=== PATIENT | female | born 1955 | race African-American/Black ===

== ENCOUNTER 2021-01-03 12:33 | Inpatient (IN) | payer OTHER ==
[2021-01-03 15:19] VITALS: BMI 41.8
[2021-01-03] MEDS ORDERED: MAG HYDROX/AL HYDROX/SIMETH 30 ML UNIT-DOSE CUP PO PRN (18:52)
[2021-01-03] MEDS ORDERED: LOPERAMIDE HCL 2 MG CAPSULE PO PRN (18:52)
[2021-01-03] MEDS ORDERED: guaiFENesin 200 MG/10 ML 10 ML UNIT-DOSE CUPS PO PRN (18:52)
[2021-01-03] MEDS ORDERED: MAGNESIUM HYDROX 2400MG/30ML ORAL SUSPENSION 30 ML CUP PO PRN (18:52)
[2021-01-03] MEDS ORDERED: P-EPHED 60MG/TRIPROLIDI 2.5MG TABLET PO PRN (18:52)
[2021-01-03] MEDS ORDERED: MAGNESIUM CITRATE 300 ML BOTTLE PO PRN (18:52)
[2021-01-03] MEDS ORDERED: IBUPROFEN 400 MG TABLET (FP) PO PRN (18:52)
[2021-01-03] MEDS ORDERED: ACETAMINOPHEN 325 MG TABLET (FP) PO PRN (18:52)
[2021-01-03] MEDS ORDERED: CYCLOBENZAPRINE HCL 5 MG TABLET PO PRN (19:23)
[2021-01-03] MEDS ORDERED: TUBERCULIN PPD 5 TU/0.1ML VIAL ID ONE (20:27)
[2021-01-03] MEDS: THIAMINE HCL 100 MG TABLET (FP) PO SCH (21:39)
[2021-01-03] MEDS: ATORVASTATIN CA 20 MG TABLET (FP) PO SCH (21:39)
[2021-01-03] MEDS ORDERED: MELATONIN 5 MG TABLETS PO SCH (22:00)
[2021-01-03] MEDS ORDERED: CYCLOBENZAPRINE HCL 5 MG TABLET PO SCH (22:00)
[2021-01-04 09:50] LABS: HEMATOCRIT 41.6 % (32.4-45.2); HEMOGLOBIN 13.6 GM/dL (10.7-15.3); MCH 31.7 pg (25.7-33.7); MCHC 32.7 g/dl (32.0-36.0); MEAN PLT VOLUME 7.8 fl (7.5-11.1); PLATELET COUNT 253 K/MM3 (134-434); RBC 4.28 M/mm3 (3.60-5.2); RDW 15.4 % (11.6-15.6); WHITE BLOOD COUNT 5.5 K/mm3 (4.0-10.0)
[2021-01-04 10:00] LABS: CALCIUM 9.1 mg/dL (8.5-10.1)
[2021-01-04] MEDS ORDERED: LOSARTAN 50MG/HCTZ 12.5MG 1 TAB PO SCH (10:00)
[2021-01-04 10:01] LABS: ALBUMIN 3.3 g/dl (3.4-5.0); BLOOD UREA NITROGEN 7.7 mg/dL (7-18)
[2021-01-04 10:04] LABS: CREATININE 0.9 mg/dL (0.55-1.3)
[2021-01-04 10:05] LABS: BILIRUBIN,TOTAL 0.8 mg/dL (0.2-1)
[2021-01-04] MEDS: LOSARTAN POTASSIUM 50 MG TABLET PO SCH (10:27)
[2021-01-04] MEDS: HYDROCHLOROTHIAZIDE 12.5 MG CAPSULE (FP) PO SCH (10:27)
[2021-01-04] MEDS: PRENATAL VITAMINS W/ FOLIC ACID TABLET (FP) PO SCH (10:27)
[2021-01-04] MEDS: NICOTINE 7 MG/24 HOURS TOPICAL PATCH TD SCH (10:28)
[2021-01-04] MEDS: hydrOXYzine PAMOATE 25 MG CAPSULE (FP) PO PRN ×2 (10:28→21:25)
[2021-01-04] MEDS: TIOTROPIUM BROMIDE 2.5 MCG (SPIRIVA) RESPIMAT INHALER IH SCH (11:54)
[2021-01-04 14:51] LABS: URINE APPEARANCE CLEAR; URINE BILIRUBIN NEGATIVE (NEGATIVE); URINE COLOR YELLOW; URINE GLUCOSE (UA) NEGATIVE (NEGATIVE); URINE KETONE NEGATIVE (NEGATIVE); URINE LEUK ESTERASE NEGATIVE (NEGATIVE); URINE NITRITE NEGATIVE (NEGATIVE); URINE PROTEIN NEGATIVE (NEGATIVE)
[2021-01-04] MEDS: ATORVASTATIN CA 20 MG TABLET (FP) PO SCH (21:25)
[2021-01-04] MEDS: THIAMINE HCL 100 MG TABLET (FP) PO SCH (21:25)
[2021-01-04] MEDS: TOPIRAMATE 100 MG TABLET PO SCH (22:08)
[2021-01-04] MEDS: risperiDONE 1 MG TABLET PO SCH (22:08)
[2021-01-05] MEDS: HYDROCHLOROTHIAZIDE 12.5 MG CAPSULE (FP) PO SCH (10:18)
[2021-01-05] MEDS: LOSARTAN POTASSIUM 50 MG TABLET PO SCH (10:18)
[2021-01-05] MEDS: PRENATAL VITAMINS W/ FOLIC ACID TABLET (FP) PO SCH (10:18)
[2021-01-05] MEDS: NICOTINE 7 MG/24 HOURS TOPICAL PATCH TD SCH (10:19)
[2021-01-05] MEDS: TIOTROPIUM BROMIDE 2.5 MCG (SPIRIVA) RESPIMAT INHALER IH SCH (10:20)
[2021-01-05] MEDS: TOPIRAMATE 25 MG TABLET PO SCH (11:37)
[2021-01-05] MEDS ORDERED: PT OWN MED DRAWER 7, Y5N ONE (20:07)
[2021-01-05] MEDS: ATORVASTATIN CA 20 MG TABLET (FP) PO SCH (21:46)
[2021-01-05] MEDS: THIAMINE HCL 100 MG TABLET (FP) PO SCH (21:46)
[2021-01-05] MEDS: risperiDONE 1 MG TABLET PO SCH (21:46)
[2021-01-05] MEDS: TOPIRAMATE 100 MG TABLET PO SCH (21:46)
[2021-01-06] MEDS: PRENATAL VITAMINS W/ FOLIC ACID TABLET (FP) PO SCH (10:38)
[2021-01-06] MEDS: LOSARTAN POTASSIUM 50 MG TABLET PO SCH (10:38)
[2021-01-06] MEDS: HYDROCHLOROTHIAZIDE 12.5 MG CAPSULE (FP) PO SCH (10:38)
[2021-01-06] MEDS: NICOTINE 7 MG/24 HOURS TOPICAL PATCH TD SCH (10:38)
[2021-01-06] MEDS: TOPIRAMATE 25 MG TABLET PO SCH (10:39)
[2021-01-06] MEDS: TIOTROPIUM BROMIDE 2.5 MCG (SPIRIVA) RESPIMAT INHALER IH SCH (10:40)
[2021-01-06] MEDS ORDERED: PT OWN MED DRAWER 7, Y5N ONE (19:31)
[2021-01-06] MEDS: MELATONIN 5 MG TABLETS PO PRN (21:38)
[2021-01-06] MEDS: THIAMINE HCL 100 MG TABLET (FP) PO SCH (21:38)
[2021-01-06] MEDS: ATORVASTATIN CA 20 MG TABLET (FP) PO SCH (21:38)
[2021-01-06] MEDS: TOPIRAMATE 100 MG TABLET PO SCH (21:38)
[2021-01-06] MEDS: risperiDONE 1 MG TABLET PO SCH (21:38)
[2021-01-07 06:07] LABS: SARS-CoV-2 NAA Not Detected (Not Detected)
[2021-01-07] MEDS: NICOTINE 7 MG/24 HOURS TOPICAL PATCH TD SCH (10:06)
[2021-01-07] MEDS: LOSARTAN POTASSIUM 50 MG TABLET PO SCH (10:06)
[2021-01-07] MEDS: HYDROCHLOROTHIAZIDE 12.5 MG CAPSULE (FP) PO SCH (10:06)
[2021-01-07] MEDS: PRENATAL VITAMINS W/ FOLIC ACID TABLET (FP) PO SCH (10:06)
[2021-01-07] MEDS: TOPIRAMATE 25 MG TABLET PO SCH (10:07)
[2021-01-07] MEDS: TIOTROPIUM BROMIDE 2.5 MCG (SPIRIVA) RESPIMAT INHALER IH SCH (10:07)
[2021-01-07] MEDS ORDERED: PT OWN MED DRAWER 7, Y5N ONE (20:26)
[2021-01-07] MEDS: THIAMINE HCL 100 MG TABLET (FP) PO SCH (21:24)
[2021-01-07] MEDS: risperiDONE 1 MG TABLET PO SCH (21:24)
[2021-01-07] MEDS: TOPIRAMATE 100 MG TABLET PO SCH (21:24)
[2021-01-07] MEDS: MELATONIN 5 MG TABLETS PO PRN (21:24)
[2021-01-07] MEDS: ATORVASTATIN CA 20 MG TABLET (FP) PO SCH (21:24)
[2021-01-08] MEDS ORDERED: MASKS NR ONE (08:39)
[2021-01-08] MEDS: PRENATAL VITAMINS W/ FOLIC ACID TABLET (FP) PO SCH (09:23)
[2021-01-08] MEDS: NICOTINE 7 MG/24 HOURS TOPICAL PATCH TD SCH (09:25)
[2021-01-08] MEDS: HYDROCHLOROTHIAZIDE 12.5 MG CAPSULE (FP) PO SCH (09:25)
[2021-01-08] MEDS: LOSARTAN POTASSIUM 50 MG TABLET PO SCH (09:25)
[2021-01-08] MEDS: TIOTROPIUM BROMIDE 2.5 MCG (SPIRIVA) RESPIMAT INHALER IH SCH (09:26)
[2021-01-08] MEDS: TOPIRAMATE 25 MG TABLET PO SCH (09:26)
[2021-01-08] MEDS ORDERED: PT OWN MED DRAWER 7, Y5N ONE ×2 (19:30→21:44)
[2021-01-08] MEDS: ATORVASTATIN CA 20 MG TABLET (FP) PO SCH (21:42)
[2021-01-08] MEDS: THIAMINE HCL 100 MG TABLET (FP) PO SCH (21:42)
[2021-01-08] MEDS: MELATONIN 5 MG TABLETS PO PRN (21:42)
[2021-01-08] MEDS: risperiDONE 1 MG TABLET PO SCH (21:43)
[2021-01-08] MEDS: TOPIRAMATE 100 MG TABLET PO SCH (21:44)
[2021-01-09] MEDS: HYDROCHLOROTHIAZIDE 12.5 MG CAPSULE (FP) PO SCH (10:23)
[2021-01-09] MEDS: PRENATAL VITAMINS W/ FOLIC ACID TABLET (FP) PO SCH (10:23)
[2021-01-09] MEDS: LOSARTAN POTASSIUM 50 MG TABLET PO SCH (10:23)
[2021-01-09] MEDS: NICOTINE 7 MG/24 HOURS TOPICAL PATCH TD SCH (10:24)
[2021-01-09] MEDS: TIOTROPIUM BROMIDE 2.5 MCG (SPIRIVA) RESPIMAT INHALER IH SCH (10:24)
[2021-01-09] MEDS: TOPIRAMATE 25 MG TABLET PO SCH (10:24)
[2021-01-09] MEDS: risperiDONE 1 MG TABLET PO SCH (21:21)
[2021-01-09] MEDS: ATORVASTATIN CA 20 MG TABLET (FP) PO SCH (21:22)
[2021-01-09] MEDS: THIAMINE HCL 100 MG TABLET (FP) PO SCH (21:22)
[2021-01-09] MEDS: MELATONIN 5 MG TABLETS PO PRN (21:22)
[2021-01-09] MEDS: TOPIRAMATE 100 MG TABLET PO SCH (21:22)
[2021-01-09] MEDS: hydrOXYzine PAMOATE 25 MG CAPSULE (FP) PO PRN (21:23)
[2021-01-10] MEDS: PRENATAL VITAMINS W/ FOLIC ACID TABLET (FP) PO SCH (10:08)
[2021-01-10] MEDS: TOPIRAMATE 25 MG TABLET PO SCH (10:09)
[2021-01-10] MEDS: LOSARTAN POTASSIUM 50 MG TABLET PO SCH (10:09)
[2021-01-10] MEDS: HYDROCHLOROTHIAZIDE 12.5 MG CAPSULE (FP) PO SCH (10:09)
[2021-01-10] MEDS: TIOTROPIUM BROMIDE 2.5 MCG (SPIRIVA) RESPIMAT INHALER IH SCH (10:10)
[2021-01-10] MEDS: NICOTINE 7 MG/24 HOURS TOPICAL PATCH TD SCH (10:11)
[2021-01-10] MEDS: TOPIRAMATE 100 MG TABLET PO SCH (21:42)
[2021-01-10] MEDS: ATORVASTATIN CA 20 MG TABLET (FP) PO SCH (21:42)
[2021-01-10] MEDS: MELATONIN 5 MG TABLETS PO PRN (21:42)
[2021-01-10] MEDS: THIAMINE HCL 100 MG TABLET (FP) PO SCH (21:42)
[2021-01-10] MEDS: risperiDONE 1 MG TABLET PO SCH (21:42)
[2021-01-11] MEDS: HYDROCHLOROTHIAZIDE 12.5 MG CAPSULE (FP) PO SCH (10:13)
[2021-01-11] MEDS: NICOTINE 7 MG/24 HOURS TOPICAL PATCH TD SCH (10:13)
[2021-01-11] MEDS: PRENATAL VITAMINS W/ FOLIC ACID TABLET (FP) PO SCH (10:13)
[2021-01-11] MEDS: LOSARTAN POTASSIUM 50 MG TABLET PO SCH (10:14)
[2021-01-11] MEDS: TIOTROPIUM BROMIDE 2.5 MCG (SPIRIVA) RESPIMAT INHALER IH SCH (10:14)
[2021-01-11] MEDS: TOPIRAMATE 25 MG TABLET PO SCH (10:15)
[2021-01-11] MEDS ORDERED: PT OWN MED DRAWER 7, Y5N ONE (19:30)
[2021-01-11] MEDS: TOPIRAMATE 100 MG TABLET PO SCH (21:31)
[2021-01-11] MEDS: THIAMINE HCL 100 MG TABLET (FP) PO SCH (21:31)
[2021-01-11] MEDS: risperiDONE 1 MG TABLET PO SCH (21:31)
[2021-01-11] MEDS: ATORVASTATIN CA 20 MG TABLET (FP) PO SCH (21:31)
[2021-01-11] MEDS: MELATONIN 5 MG TABLETS PO PRN (21:32)
[2021-01-12] MEDS ORDERED: PT OWN MED DRAWER 7, Y5N ONE ×2 (08:57→20:48)
[2021-01-12] MEDS: LOSARTAN POTASSIUM 50 MG TABLET PO SCH (09:49)
[2021-01-12] MEDS: TOPIRAMATE 25 MG TABLET PO SCH (09:49)
[2021-01-12] MEDS: PRENATAL VITAMINS W/ FOLIC ACID TABLET (FP) PO SCH (09:49)
[2021-01-12] MEDS: TIOTROPIUM BROMIDE 2.5 MCG (SPIRIVA) RESPIMAT INHALER IH SCH (09:49)
[2021-01-12] MEDS: HYDROCHLOROTHIAZIDE 12.5 MG CAPSULE (FP) PO SCH (09:49)
[2021-01-12] MEDS ORDERED: COVID-19 VAC,AD26(JANSSEN)/PF 0.5 ML IM ONE (10:00)
[2021-01-12] MEDS: NICOTINE 7 MG/24 HOURS TOPICAL PATCH TD SCH (10:24)
[2021-01-12] MEDS: CHLORHEXIDINE GLUCONATE 118 ML MOUTHWASH MM SCH ×2 (12:45→21:28)
[2021-01-12] MEDS: THIAMINE HCL 100 MG TABLET (FP) PO SCH (21:28)
[2021-01-12] MEDS: TOPIRAMATE 100 MG TABLET PO SCH (21:28)
[2021-01-12] MEDS: ATORVASTATIN CA 20 MG TABLET (FP) PO SCH (21:28)
[2021-01-12] MEDS: risperiDONE 2 MG TABLET PO SCH (21:28)
[2021-01-12] MEDS: MELATONIN 5 MG TABLETS PO PRN (21:30)
[2021-01-13] MEDS ORDERED: PT OWN MED DRAWER 7, Y5N ONE ×4 (08:26→19:29)
[2021-01-13] MEDS: PRENATAL VITAMINS W/ FOLIC ACID TABLET (FP) PO SCH (09:25)
[2021-01-13] MEDS: HYDROCHLOROTHIAZIDE 12.5 MG CAPSULE (FP) PO SCH (09:26)
[2021-01-13] MEDS: TIOTROPIUM BROMIDE 2.5 MCG (SPIRIVA) RESPIMAT INHALER IH SCH (09:26)
[2021-01-13] MEDS: LOSARTAN POTASSIUM 50 MG TABLET PO SCH (09:26)
[2021-01-13] MEDS: NICOTINE 7 MG/24 HOURS TOPICAL PATCH TD SCH (09:26)
[2021-01-13] MEDS: CHLORHEXIDINE GLUCONATE 118 ML MOUTHWASH MM SCH ×2 (09:27→21:23)
[2021-01-13] MEDS: TOPIRAMATE 25 MG TABLET PO SCH (12:25)
[2021-01-13] MEDS: ATORVASTATIN CA 20 MG TABLET (FP) PO SCH (21:24)
[2021-01-13] MEDS: risperiDONE 2 MG TABLET PO SCH (21:24)
[2021-01-13] MEDS: MELATONIN 5 MG TABLETS PO PRN (21:24)
[2021-01-13] MEDS: THIAMINE HCL 100 MG TABLET (FP) PO SCH (21:24)
[2021-01-13] MEDS: TOPIRAMATE 100 MG TABLET PO SCH (21:24)
[2021-01-14] MEDS: PRENATAL VITAMINS W/ FOLIC ACID TABLET (FP) PO SCH (10:13)
[2021-01-14] MEDS: HYDROCHLOROTHIAZIDE 12.5 MG CAPSULE (FP) PO SCH (10:14)
[2021-01-14] MEDS: CHLORHEXIDINE GLUCONATE 118 ML MOUTHWASH MM SCH ×2 (10:15→21:33)
[2021-01-14] MEDS: TOPIRAMATE 25 MG TABLET PO SCH (10:16)
[2021-01-14] MEDS: TIOTROPIUM BROMIDE 2.5 MCG (SPIRIVA) RESPIMAT INHALER IH SCH (10:17)
[2021-01-14] MEDS: LOSARTAN POTASSIUM 50 MG TABLET PO SCH (10:17)
[2021-01-14] MEDS: NICOTINE 7 MG/24 HOURS TOPICAL PATCH TD SCH (10:19)
[2021-01-14] MEDS ORDERED: PT OWN MED DRAWER 7, Y5N ONE (19:34)
[2021-01-14] MEDS: hydrOXYzine PAMOATE 25 MG CAPSULE (FP) PO PRN (21:34)
[2021-01-14] MEDS: THIAMINE HCL 100 MG TABLET (FP) PO SCH (21:34)
[2021-01-14] MEDS: ATORVASTATIN CA 20 MG TABLET (FP) PO SCH (21:34)
[2021-01-14] MEDS: TOPIRAMATE 100 MG TABLET PO SCH (21:34)
[2021-01-14] MEDS: MELATONIN 5 MG TABLETS PO PRN (21:34)
[2021-01-14] MEDS: risperiDONE 2 MG TABLET PO SCH (21:35)
[2021-01-15] MEDS: NICOTINE 7 MG/24 HOURS TOPICAL PATCH TD SCH (09:56)
[2021-01-15] MEDS: LOSARTAN POTASSIUM 50 MG TABLET PO SCH (09:56)
[2021-01-15] MEDS: PRENATAL VITAMINS W/ FOLIC ACID TABLET (FP) PO SCH (09:56)
[2021-01-15] MEDS: HYDROCHLOROTHIAZIDE 12.5 MG CAPSULE (FP) PO SCH (09:56)
[2021-01-15] MEDS: TOPIRAMATE 25 MG TABLET PO SCH (10:01)
[2021-01-15] MEDS: TIOTROPIUM BROMIDE 2.5 MCG (SPIRIVA) RESPIMAT INHALER IH SCH (10:02)
[2021-01-15] MEDS: CHLORHEXIDINE GLUCONATE 118 ML MOUTHWASH MM SCH ×2 (10:02→21:30)
[2021-01-15] MEDS ORDERED: PT OWN MED DRAWER 7, Y5N ONE (19:27)
[2021-01-15] MEDS: THIAMINE HCL 100 MG TABLET (FP) PO SCH (21:30)
[2021-01-15] MEDS: TOPIRAMATE 100 MG TABLET PO SCH (21:30)
[2021-01-15] MEDS: ATORVASTATIN CA 20 MG TABLET (FP) PO SCH (21:30)
[2021-01-15] MEDS: risperiDONE 2 MG TABLET PO SCH (21:30)
[2021-01-15] MEDS: MELATONIN 5 MG TABLETS PO PRN (21:30)
[2021-01-16] MEDS ORDERED: PT OWN MED DRAWER 7, Y5N ONE ×2 (09:04→20:38)
[2021-01-16] MEDS: PRENATAL VITAMINS W/ FOLIC ACID TABLET (FP) PO SCH (10:06)
[2021-01-16] MEDS: TIOTROPIUM BROMIDE 2.5 MCG (SPIRIVA) RESPIMAT INHALER IH SCH (10:07)
[2021-01-16] MEDS: HYDROCHLOROTHIAZIDE 12.5 MG CAPSULE (FP) PO SCH (10:07)
[2021-01-16] MEDS: LOSARTAN POTASSIUM 50 MG TABLET PO SCH (10:07)
[2021-01-16] MEDS: TOPIRAMATE 25 MG TABLET PO SCH (10:08)
[2021-01-16] MEDS: CHLORHEXIDINE GLUCONATE 118 ML MOUTHWASH MM SCH ×2 (10:08→21:45)
[2021-01-16] MEDS: NICOTINE 7 MG/24 HOURS TOPICAL PATCH TD SCH (10:08)
[2021-01-16] MEDS: ATORVASTATIN CA 20 MG TABLET (FP) PO SCH (21:44)
[2021-01-16] MEDS: risperiDONE 2 MG TABLET PO SCH (21:44)
[2021-01-16] MEDS: TOPIRAMATE 100 MG TABLET PO SCH (21:44)
[2021-01-16] MEDS: THIAMINE HCL 100 MG TABLET (FP) PO SCH (21:44)
[2021-01-16] MEDS: MELATONIN 5 MG TABLETS PO PRN (21:45)
[2021-01-17] MEDS: NICOTINE 7 MG/24 HOURS TOPICAL PATCH TD SCH (10:24)
[2021-01-17] MEDS: TIOTROPIUM BROMIDE 2.5 MCG (SPIRIVA) RESPIMAT INHALER IH SCH (10:24)
[2021-01-17] MEDS: TOPIRAMATE 25 MG TABLET PO SCH (10:24)
[2021-01-17] MEDS: PRENATAL VITAMINS W/ FOLIC ACID TABLET (FP) PO SCH (10:24)
[2021-01-17] MEDS: HYDROCHLOROTHIAZIDE 12.5 MG CAPSULE (FP) PO SCH (10:25)
[2021-01-17] MEDS: LOSARTAN POTASSIUM 50 MG TABLET PO SCH (10:25)
[2021-01-17] MEDS: CHLORHEXIDINE GLUCONATE 118 ML MOUTHWASH MM SCH ×2 (10:26→21:26)
[2021-01-17] MEDS: TOPIRAMATE 100 MG TABLET PO SCH (21:24)
[2021-01-17] MEDS: MELATONIN 5 MG TABLETS PO PRN (21:25)
[2021-01-17] MEDS: THIAMINE HCL 100 MG TABLET (FP) PO SCH (21:25)
[2021-01-17] MEDS: ATORVASTATIN CA 20 MG TABLET (FP) PO SCH (21:25)
[2021-01-17] MEDS: risperiDONE 2 MG TABLET PO SCH (21:25)
[2021-01-17] MEDS: hydrOXYzine PAMOATE 25 MG CAPSULE (FP) PO PRN (21:25)
[2021-01-18] MEDS: TIOTROPIUM BROMIDE 2.5 MCG (SPIRIVA) RESPIMAT INHALER IH SCH (10:28)
[2021-01-18] MEDS: PRENATAL VITAMINS W/ FOLIC ACID TABLET (FP) PO SCH (10:28)
[2021-01-18] MEDS: CHLORHEXIDINE GLUCONATE 118 ML MOUTHWASH MM SCH ×2 (10:29→23:17)
[2021-01-18] MEDS: TOPIRAMATE 25 MG TABLET PO SCH (10:29)
[2021-01-18] MEDS: LOSARTAN POTASSIUM 50 MG TABLET PO SCH (10:29)
[2021-01-18] MEDS: HYDROCHLOROTHIAZIDE 12.5 MG CAPSULE (FP) PO SCH (10:29)
[2021-01-18] MEDS: NICOTINE 7 MG/24 HOURS TOPICAL PATCH TD SCH (10:29)
[2021-01-18] MEDS: risperiDONE 2 MG TABLET PO SCH (21:50)
[2021-01-18] MEDS: TOPIRAMATE 100 MG TABLET PO SCH (21:50)
[2021-01-18] MEDS: hydrOXYzine PAMOATE 25 MG CAPSULE (FP) PO PRN (21:50)
[2021-01-18] MEDS: ATORVASTATIN CA 20 MG TABLET (FP) PO SCH (21:50)
[2021-01-18] MEDS: THIAMINE HCL 100 MG TABLET (FP) PO SCH (21:50)
[2021-01-19 07:09] VITALS: TEMP 97.3
[2021-01-19] MEDS: LOSARTAN POTASSIUM 50 MG TABLET PO SCH (10:21)
[2021-01-19] MEDS: TOPIRAMATE 25 MG TABLET PO SCH (10:21)
[2021-01-19] MEDS: HYDROCHLOROTHIAZIDE 12.5 MG CAPSULE (FP) PO SCH (10:21)
[2021-01-19] MEDS: CHLORHEXIDINE GLUCONATE 118 ML MOUTHWASH MM SCH (10:22)
[2021-01-19] MEDS: PRENATAL VITAMINS W/ FOLIC ACID TABLET (FP) PO SCH (10:22)
[2021-01-19] MEDS: NICOTINE 7 MG/24 HOURS TOPICAL PATCH TD SCH (10:22)
[2021-01-19] MEDS: TIOTROPIUM BROMIDE 2.5 MCG (SPIRIVA) RESPIMAT INHALER IH SCH (10:22)
[2021-01-19 10:33] VITALS: BP 122/63; PULSE 85
== END 2021-01-19 10:45 | disposition home or self-care (01) | DRG 895 ==
LOC: YASAS 12:33 → Y5N 18:12
PROVIDERS: ADMIT Allergy & Immunology; ATTEND Allergy & Immunology
PROC: HZ42ZZZ Group Counseling for Substance Abuse Treatment, Cognitive-Behavioral (ICD-10-PCS; principal; 2021-01-03)
DX: F10.20 Alcohol dependence, uncomplicated (principal); F14.20 Cocaine dependence, uncomplicated; F12.20 Cannabis dependence, uncomplicated; F17.210 Nicotine dependence, cigarettes, uncomplicated; F31.9 Bipolar disorder, unspecified; F19.24 Other psychoactive substance dependence with psychoactive substance-induced mood disorder; I10 Essential (primary) hypertension; J44.9 Chronic obstructive pulmonary disease, unspecified; E78.5 Hyperlipidemia, unspecified; M17.11 Unilateral primary osteoarthritis, right knee; M16.11 Unilateral primary osteoarthritis, right hip; Z86.19 Personal history of other infectious and parasitic diseases
CPT/HCPCS: 36415; 80053; 81003; 85027; 86593; 86780; C9803; J2794; U0003; U0005

== ENCOUNTER 2021-12-06 10:47 | Inpatient (IN) | payer OTHER ==
[2021-12-06 12:03] VITALS: BMI 42.6
[2021-12-06] MEDS ORDERED: ONDANSETRON *ODT* 4 MG TABLET SL PRN (12:04)
[2021-12-06] MEDS ORDERED: BENZOCAINE/MENTHOL (CHLORASEPTIC ) LOZENGE MM PRN (12:04)
[2021-12-06] MEDS ORDERED: chlordiazePOXIDE HCL 25 MG CAPSULE PO PRN (12:04)
[2021-12-06] MEDS ORDERED: LOPERAMIDE HCL 2 MG CAPSULE PO PRN (12:04)
[2021-12-06] MEDS ORDERED: ACETAMINOPHEN 325 MG TABLET (FP) PO PRN ×2 (12:04)
[2021-12-06] MEDS ORDERED: MAGNESIUM CITRATE 300 ML BOTTLE PO PRN (12:04)
[2021-12-06] MEDS ORDERED: NICOTINE 10 MG CARTRIDGE (INHALER) IH PRN (12:04)
[2021-12-06] MEDS ORDERED: MAG HYDROX/AL HYDROX/SIMETH 30 ML UNIT-DOSE CUP PO PRN (12:04)
[2021-12-06] MEDS ORDERED: MAGNESIUM HYDROX 2400MG/30ML ORAL SUSPENSION 30 ML CUP PO PRN (12:04)
[2021-12-06] MEDS ORDERED: IBUPROFEN 400 MG TABLET (FP) PO PRN (12:04)
[2021-12-06] MEDS ORDERED: BISMUTH SUBSALICYLATE 524 MG/30 ML PO PRN (12:04)
[2021-12-06] MEDS ORDERED: DICYCLOMINE HCL 10 MG CAPSULE PO PRN (12:04)
[2021-12-06] MEDS ORDERED: METHOCARBAMOL 500 MG TABLET PO PRN (12:04)
[2021-12-06] MEDS ORDERED: hydrOXYzine PAMOATE 25 MG CAPSULE (FP) PO PRN (14:00)
[2021-12-06] MEDS: NICOTINE 7 MG/24 HOURS TOPICAL PATCH TD SCH (14:28)
[2021-12-06] MEDS: PRENATAL VITAMINS W/ FOLIC ACID TABLET (FP) PO SCH (14:29)
[2021-12-06] MEDS ORDERED: ALBUTEROL SO4 HFA INHALER IH PRN (15:14)
[2021-12-06] MEDS ORDERED: LOSARTAN 50MG/HCTZ 12.5MG 1 TAB PO SCH (16:00)
[2021-12-06 17:10] LABS: HEMOGLOBIN 12.8 GM/dL (10.7-15.3); MCH 30.5 pg (25.7-33.7); MCHC 32.1 g/dl (32.0-36.0); MEAN CELL VOLUME 95.1 fl (80-96); MEAN PLT VOLUME 7.3 fl (7.5-11.1); PLATELET COUNT 242 10^3/uL (134-434); RDW 16.2 % (11.6-15.6); WHITE BLOOD COUNT 5.5 K/mm3 (4.0-10.0)
[2021-12-06 17:13] LABS: CALCIUM 8.8 mg/dL (8.5-10.1)
[2021-12-06 17:14] LABS: ALBUMIN 3.2 g/dl (3.4-5.0); BLOOD UREA NITROGEN 12.8 mg/dL (7-18)
[2021-12-06 17:17] LABS: CREATININE 1.1 mg/dL (0.55-1.3)
[2021-12-06 17:18] LABS: BILIRUBIN,TOTAL 0.6 mg/dL (0.2-1)
[2021-12-06] MEDS: LOSARTAN PO SCH (17:19)
[2021-12-06] MEDS: [UNRECOGNIZED DRUG - OTHER] PO SCH (17:19)
[2021-12-06] MEDS: chlordiazePOXIDE HCL 25 MG CAPSULE PO SCH ×2 (17:21→23:37)
[2021-12-06] MEDS: MELATONIN 5 MG TABLETS PO SCH (22:34)
[2021-12-06] MEDS: THIAMINE HCL 100 MG TABLET (FP) PO SCH (22:34)
[2021-12-06] MEDS: risperiDONE 2 MG TABLET PO SCH (23:01)
[2021-12-06] MEDS: TOPIRAMATE 25 MG TABLET PO SCH (23:02)
[2021-12-07] MEDS: chlordiazePOXIDE HCL 25 MG CAPSULE PO SCH ×4 (05:48→22:11)
[2021-12-07] MEDS: NICOTINE 7 MG/24 HOURS TOPICAL PATCH TD SCH (10:14)
[2021-12-07] MEDS: PRENATAL VITAMINS W/ FOLIC ACID TABLET (FP) PO SCH (10:14)
[2021-12-07] MEDS: TOPIRAMATE 25 MG TABLET PO SCH ×2 (10:15→22:11)
[2021-12-07] MEDS: LOSARTAN PO SCH (10:31)
[2021-12-07] MEDS: [UNRECOGNIZED DRUG - OTHER] PO SCH (10:31)
[2021-12-07] MEDS: MELATONIN 5 MG TABLETS PO SCH (22:11)
[2021-12-07] MEDS: risperiDONE 2 MG TABLET PO SCH (22:11)
[2021-12-07] MEDS: THIAMINE HCL 100 MG TABLET (FP) PO SCH (22:11)
[2021-12-08] MEDS: chlordiazePOXIDE HCL 25 MG CAPSULE PO SCH ×2 (07:49→10:56)
[2021-12-08 09:13] VITALS: PULSE 99
[2021-12-08] MEDS: [UNRECOGNIZED DRUG - OTHER] PO SCH (10:16)
[2021-12-08] MEDS: TOPIRAMATE 25 MG TABLET PO SCH (10:16)
[2021-12-08] MEDS: PRENATAL VITAMINS W/ FOLIC ACID TABLET (FP) PO SCH (10:16)
[2021-12-08] MEDS: LOSARTAN PO SCH (10:16)
[2021-12-08] MEDS: NICOTINE 7 MG/24 HOURS TOPICAL PATCH TD SCH (10:56)
[2021-12-08 13:03] VITALS: BP 110/61; TEMP 97.5
[2021-12-08 14:08] LABS: SARS-CoV-2 NAA Not Detected (Not Detected)
[2021-12-09] MEDS ORDERED: chlordiazePOXIDE HCL 10 MG CAPSULE PO PRN
[2021-12-09] MEDS ORDERED: chlordiazePOXIDE HCL 10 MG CAPSULE PO SCH (05:00)
[2021-12-10] MEDS ORDERED: chlordiazePOXIDE HCL 10 MG CAPSULE PO SCH (05:00)
[2021-12-11] MEDS ORDERED: chlordiazePOXIDE HCL 10 MG CAPSULE PO ONE (05:00)
== END 2021-12-08 15:33 | disposition home or self-care (01) | DRG 897 ==
LOC: YASAS 10:47 → Y3N 12:35
PROVIDERS: ADMIT Allergy & Immunology; ATTEND Allergy & Immunology
PROC: HZ2ZZZZ Detoxification Services for Substance Abuse Treatment (ICD-10-PCS; principal; 2021-12-06)
DX: F10.230 Alcohol dependence with withdrawal, uncomplicated (principal); F14.20 Cocaine dependence, uncomplicated; F12.10 Cannabis abuse, uncomplicated; F17.210 Nicotine dependence, cigarettes, uncomplicated; F19.24 Other psychoactive substance dependence with psychoactive substance-induced mood disorder; F31.9 Bipolar disorder, unspecified; F41.9 Anxiety disorder, unspecified; E78.5 Hyperlipidemia, unspecified; J44.9 Chronic obstructive pulmonary disease, unspecified; M17.11 Unilateral primary osteoarthritis, right knee; M16.11 Unilateral primary osteoarthritis, right hip
CPT/HCPCS: 36415; 80053; 85027; 86593; 86780; 87811; 93005; 93010; C9803-CS; U0003; U0005

== ENCOUNTER 2021-12-08 15:36 | Inpatient (IN) | payer OTHER ==
[2021-12-08] MEDS ORDERED: BENZOCAINE/MENTHOL (CHLORASEPTIC ) LOZENGE MM PRN (16:47)
[2021-12-08] MEDS ORDERED: NICOTINE 10 MG CARTRIDGE (INHALER) IH PRN (16:47)
[2021-12-08] MEDS ORDERED: LOPERAMIDE HCL 2 MG CAPSULE PO PRN (16:47)
[2021-12-08] MEDS ORDERED: guaiFENesin 200 MG/10 ML 10 ML UNIT-DOSE CUPS PO PRN (16:47)
[2021-12-08] MEDS ORDERED: P-EPHED 60MG/TRIPROLIDI 2.5MG TABLET PO PRN (16:47)
[2021-12-08] MEDS ORDERED: ACETAMINOPHEN 325 MG TABLET (FP) PO PRN (16:47)
[2021-12-08] MEDS ORDERED: MAG HYDROX/AL HYDROX/SIMETH 30 ML UNIT-DOSE CUP PO PRN (16:47)
[2021-12-08] MEDS ORDERED: MAGNESIUM HYDROX 2400MG/30ML ORAL SUSPENSION 30 ML CUP PO PRN (16:47)
[2021-12-08] MEDS ORDERED: IBUPROFEN 400 MG TABLET (FP) PO PRN (16:47)
[2021-12-08] MEDS ORDERED: MAGNESIUM CITRATE 300 ML BOTTLE PO PRN (16:47)
[2021-12-08] MEDS: MELATONIN 5 MG TABLETS PO SCH (21:48)
[2021-12-08] MEDS: THIAMINE HCL 100 MG TABLET (FP) PO SCH (21:48)
[2021-12-09] MEDS: PRENATAL VITAMINS W/ FOLIC ACID TABLET (FP) PO SCH (10:03)
[2021-12-09] MEDS: NICOTINE 7 MG/24 HOURS TOPICAL PATCH TD SCH ×2 (10:09→14:46)
[2021-12-09] MEDS ORDERED: COLLOIDAL OATMEAL 1 BAR EACH TP PRN (10:41)
[2021-12-09] MEDS: TIOTROPIUM BROMIDE 2.5 MCG (SPIRIVA) RESPIMAT INHALER IH SCH (14:52)
[2021-12-09] MEDS: LOSARTAN 50MG/HCTZ 12.5MG 1 TAB PO SCH (14:52)
[2021-12-09] MEDS: TOPIRAMATE 25 MG TABLET PO SCH ×2 (14:52→22:09)
[2021-12-09] MEDS ORDERED: TOPIRAMATE 100 MG TABLET PO SCH (22:00)
[2021-12-09] MEDS: ATORVASTATIN CA 20 MG TABLET (FP) PO SCH (22:07)
[2021-12-09] MEDS: THIAMINE HCL 100 MG TABLET (FP) PO SCH (22:07)
[2021-12-09] MEDS: risperiDONE 2 MG TABLET PO SCH (22:07)
[2021-12-09] MEDS: MELATONIN 5 MG TABLETS PO SCH (22:09)
[2021-12-10] MEDS: PRENATAL VITAMINS W/ FOLIC ACID TABLET (FP) PO SCH (11:03)
[2021-12-10] MEDS: NICOTINE 7 MG/24 HOURS TOPICAL PATCH TD SCH (11:03)
[2021-12-10] MEDS: TIOTROPIUM BROMIDE 2.5 MCG (SPIRIVA) RESPIMAT INHALER IH SCH (11:04)
[2021-12-10] MEDS: LOSARTAN 50MG/HCTZ 12.5MG 1 TAB PO SCH (11:04)
[2021-12-10] MEDS: TOPIRAMATE 25 MG TABLET PO SCH ×2 (11:05→22:10)
[2021-12-10] MEDS: METHYL SALICYLATE/MENTHOL OINT 30 GM TUBE TP SCH ×2 (16:51→22:11)
[2021-12-10] MEDS: MELATONIN 5 MG TABLETS PO SCH (22:09)
[2021-12-10] MEDS: risperiDONE 2 MG TABLET PO SCH (22:10)
[2021-12-10] MEDS: THIAMINE HCL 100 MG TABLET (FP) PO SCH (22:10)
[2021-12-10] MEDS: ATORVASTATIN CA 20 MG TABLET (FP) PO SCH (22:10)
[2021-12-11] MEDS: METHYL SALICYLATE/MENTHOL OINT 30 GM TUBE TP SCH ×2 (10:46→22:05)
[2021-12-11] MEDS: NICOTINE 7 MG/24 HOURS TOPICAL PATCH TD SCH (10:46)
[2021-12-11] MEDS: TIOTROPIUM BROMIDE 2.5 MCG (SPIRIVA) RESPIMAT INHALER IH SCH (10:46)
[2021-12-11] MEDS: PRENATAL VITAMINS W/ FOLIC ACID TABLET (FP) PO SCH (10:46)
[2021-12-11] MEDS: TOPIRAMATE 25 MG TABLET PO SCH ×2 (10:47→22:09)
[2021-12-11] MEDS: LOSARTAN 50MG/HCTZ 12.5MG 1 TAB PO SCH (15:00)
[2021-12-11] MEDS: MELATONIN 5 MG TABLETS PO SCH (22:05)
[2021-12-11] MEDS: ATORVASTATIN CA 20 MG TABLET (FP) PO SCH (22:06)
[2021-12-11] MEDS: risperiDONE 2 MG TABLET PO SCH (22:09)
[2021-12-11] MEDS: THIAMINE HCL 100 MG TABLET (FP) PO SCH (22:11)
[2021-12-12] MEDS: NICOTINE 7 MG/24 HOURS TOPICAL PATCH TD SCH (10:52)
[2021-12-12] MEDS: PRENATAL VITAMINS W/ FOLIC ACID TABLET (FP) PO SCH (10:52)
[2021-12-12] MEDS: LOSARTAN 50MG/HCTZ 12.5MG 1 TAB PO SCH (10:52)
[2021-12-12] MEDS: TOPIRAMATE 25 MG TABLET PO SCH ×2 (10:52→21:24)
[2021-12-12] MEDS: METHYL SALICYLATE/MENTHOL OINT 30 GM TUBE TP SCH ×2 (10:53→21:23)
[2021-12-12] MEDS: TIOTROPIUM BROMIDE 2.5 MCG (SPIRIVA) RESPIMAT INHALER IH SCH (10:53)
[2021-12-12] MEDS: THIAMINE HCL 100 MG TABLET (FP) PO SCH (21:23)
[2021-12-12] MEDS: risperiDONE 2 MG TABLET PO SCH (21:24)
[2021-12-12] MEDS: ATORVASTATIN CA 20 MG TABLET (FP) PO SCH (21:24)
[2021-12-12] MEDS: MELATONIN 5 MG TABLETS PO SCH (21:24)
[2021-12-13] MEDS: TIOTROPIUM BROMIDE 2.5 MCG (SPIRIVA) RESPIMAT INHALER IH SCH (10:31)
[2021-12-13] MEDS: NICOTINE 7 MG/24 HOURS TOPICAL PATCH TD SCH (10:32)
[2021-12-13] MEDS: TOPIRAMATE 25 MG TABLET PO SCH ×2 (10:32→21:16)
[2021-12-13] MEDS: LOSARTAN 50MG/HCTZ 12.5MG 1 TAB PO SCH (10:32)
[2021-12-13] MEDS: PRENATAL VITAMINS W/ FOLIC ACID TABLET (FP) PO SCH (10:32)
[2021-12-13] MEDS: METHYL SALICYLATE/MENTHOL OINT 30 GM TUBE TP SCH ×2 (10:35→21:13)
[2021-12-13] MEDS: ATORVASTATIN CA 20 MG TABLET (FP) PO SCH (21:14)
[2021-12-13] MEDS: risperiDONE 2 MG TABLET PO SCH (21:15)
[2021-12-13] MEDS: THIAMINE HCL 100 MG TABLET (FP) PO SCH (21:15)
[2021-12-13] MEDS: MELATONIN 5 MG TABLETS PO SCH (21:16)
[2021-12-14] MEDS: PRENATAL VITAMINS W/ FOLIC ACID TABLET (FP) PO SCH (10:17)
[2021-12-14] MEDS: METHYL SALICYLATE/MENTHOL OINT 30 GM TUBE TP SCH ×2 (10:17→21:34)
[2021-12-14] MEDS: TOPIRAMATE 25 MG TABLET PO SCH ×2 (10:18→21:33)
[2021-12-14] MEDS: LOSARTAN 50MG/HCTZ 12.5MG 1 TAB PO SCH (10:18)
[2021-12-14] MEDS: NICOTINE 7 MG/24 HOURS TOPICAL PATCH TD SCH (10:19)
[2021-12-14] MEDS: TIOTROPIUM BROMIDE 2.5 MCG (SPIRIVA) RESPIMAT INHALER IH SCH (10:21)
[2021-12-14 14:08] LABS: SARS-CoV-2 NAA Not Detected (Not Detected)
[2021-12-14] MEDS: ATORVASTATIN CA 20 MG TABLET (FP) PO SCH (21:33)
[2021-12-14] MEDS: risperiDONE 2 MG TABLET PO SCH (21:34)
[2021-12-14] MEDS: MELATONIN 5 MG TABLETS PO SCH (21:34)
[2021-12-14] MEDS: THIAMINE HCL 100 MG TABLET (FP) PO SCH (21:34)
[2021-12-15] MEDS: PRENATAL VITAMINS W/ FOLIC ACID TABLET (FP) PO SCH (11:00)
[2021-12-15] MEDS: NICOTINE 7 MG/24 HOURS TOPICAL PATCH TD SCH (11:00)
[2021-12-15] MEDS: TOPIRAMATE 25 MG TABLET PO SCH ×2 (11:01→21:25)
[2021-12-15] MEDS: TIOTROPIUM BROMIDE 2.5 MCG (SPIRIVA) RESPIMAT INHALER IH SCH (11:01)
[2021-12-15] MEDS: LOSARTAN 50MG/HCTZ 12.5MG 1 TAB PO SCH (11:01)
[2021-12-15] MEDS: METHYL SALICYLATE/MENTHOL OINT 30 GM TUBE TP SCH ×2 (11:04→21:24)
[2021-12-15] MEDS: risperiDONE 2 MG TABLET PO SCH (21:24)
[2021-12-15] MEDS: ATORVASTATIN CA 20 MG TABLET (FP) PO SCH (21:24)
[2021-12-15] MEDS: MELATONIN 5 MG TABLETS PO SCH (21:25)
[2021-12-15] MEDS: THIAMINE HCL 100 MG TABLET (FP) PO SCH (21:25)
[2021-12-16] MEDS: METHYL SALICYLATE/MENTHOL OINT 30 GM TUBE TP SCH ×2 (10:29→21:55)
[2021-12-16] MEDS: TIOTROPIUM BROMIDE 2.5 MCG (SPIRIVA) RESPIMAT INHALER IH SCH (10:29)
[2021-12-16] MEDS: TOPIRAMATE 25 MG TABLET PO SCH ×2 (10:30→21:55)
[2021-12-16] MEDS: PRENATAL VITAMINS W/ FOLIC ACID TABLET (FP) PO SCH (10:30)
[2021-12-16] MEDS: NICOTINE 7 MG/24 HOURS TOPICAL PATCH TD SCH (10:30)
[2021-12-16] MEDS: LOSARTAN 50MG/HCTZ 12.5MG 1 TAB PO SCH (10:31)
[2021-12-16] MEDS: MELATONIN 5 MG TABLETS PO SCH (21:55)
[2021-12-16] MEDS: ATORVASTATIN CA 20 MG TABLET (FP) PO SCH (21:55)
[2021-12-16] MEDS: THIAMINE HCL 100 MG TABLET (FP) PO SCH (21:56)
[2021-12-16] MEDS: risperiDONE 2 MG TABLET PO SCH (21:56)
[2021-12-17] MEDS: LOSARTAN 50MG/HCTZ 12.5MG 1 TAB PO SCH (10:38)
[2021-12-17] MEDS: PRENATAL VITAMINS W/ FOLIC ACID TABLET (FP) PO SCH (10:38)
[2021-12-17] MEDS: TOPIRAMATE 25 MG TABLET PO SCH ×2 (10:39→21:55)
[2021-12-17] MEDS: TIOTROPIUM BROMIDE 2.5 MCG (SPIRIVA) RESPIMAT INHALER IH SCH (10:40)
[2021-12-17] MEDS: ALBUTEROL SO4 HFA INHALER IH PRN (10:41)
[2021-12-17] MEDS: NICOTINE 7 MG/24 HOURS TOPICAL PATCH TD SCH (10:42)
[2021-12-17] MEDS: METHYL SALICYLATE/MENTHOL OINT 30 GM TUBE TP SCH ×2 (10:42→21:57)
[2021-12-17] MEDS: risperiDONE 2 MG TABLET PO SCH (21:54)
[2021-12-17] MEDS: ATORVASTATIN CA 20 MG TABLET (FP) PO SCH (21:55)
[2021-12-17] MEDS: MELATONIN 5 MG TABLETS PO SCH (21:55)
[2021-12-17] MEDS: THIAMINE HCL 100 MG TABLET (FP) PO SCH (21:55)
[2021-12-18] MEDS: TIOTROPIUM BROMIDE 2.5 MCG (SPIRIVA) RESPIMAT INHALER IH SCH (10:34)
[2021-12-18] MEDS: PRENATAL VITAMINS W/ FOLIC ACID TABLET (FP) PO SCH (10:34)
[2021-12-18] MEDS: TOPIRAMATE 25 MG TABLET PO SCH ×2 (10:35→21:47)
[2021-12-18] MEDS: METHYL SALICYLATE/MENTHOL OINT 30 GM TUBE TP SCH ×2 (10:36→21:46)
[2021-12-18] MEDS: NICOTINE 7 MG/24 HOURS TOPICAL PATCH TD SCH (10:36)
[2021-12-18] MEDS: LOSARTAN 50MG/HCTZ 12.5MG 1 TAB PO SCH (10:37)
[2021-12-18] MEDS: risperiDONE 2 MG TABLET PO SCH (21:47)
[2021-12-18] MEDS: THIAMINE HCL 100 MG TABLET (FP) PO SCH (21:47)
[2021-12-18] MEDS: ATORVASTATIN CA 20 MG TABLET (FP) PO SCH (21:47)
[2021-12-18] MEDS: MELATONIN 5 MG TABLETS PO SCH (21:47)
[2021-12-19] MEDS: METHYL SALICYLATE/MENTHOL OINT 30 GM TUBE TP SCH ×2 (10:34→21:30)
[2021-12-19] MEDS: PRENATAL VITAMINS W/ FOLIC ACID TABLET (FP) PO SCH (10:34)
[2021-12-19] MEDS: NICOTINE 7 MG/24 HOURS TOPICAL PATCH TD SCH (10:34)
[2021-12-19] MEDS: TIOTROPIUM BROMIDE 2.5 MCG (SPIRIVA) RESPIMAT INHALER IH SCH (10:35)
[2021-12-19] MEDS: TOPIRAMATE 25 MG TABLET PO SCH ×2 (10:36→21:31)
[2021-12-19] MEDS: LOSARTAN 50MG/HCTZ 12.5MG 1 TAB PO SCH (10:36)
[2021-12-19] MEDS: ATORVASTATIN CA 20 MG TABLET (FP) PO SCH (21:30)
[2021-12-19] MEDS: MELATONIN 5 MG TABLETS PO SCH (21:30)
[2021-12-19] MEDS: risperiDONE 2 MG TABLET PO SCH (21:31)
[2021-12-19] MEDS: THIAMINE HCL 100 MG TABLET (FP) PO SCH (21:31)
[2021-12-20] MEDS: PRENATAL VITAMINS W/ FOLIC ACID TABLET (FP) PO SCH (10:48)
[2021-12-20] MEDS: METHYL SALICYLATE/MENTHOL OINT 30 GM TUBE TP SCH ×2 (10:48→21:10)
[2021-12-20] MEDS: NICOTINE 7 MG/24 HOURS TOPICAL PATCH TD SCH (10:48)
[2021-12-20] MEDS: LOSARTAN 50MG/HCTZ 12.5MG 1 TAB PO SCH (10:49)
[2021-12-20] MEDS: TIOTROPIUM BROMIDE 2.5 MCG (SPIRIVA) RESPIMAT INHALER IH SCH (10:49)
[2021-12-20] MEDS: TOPIRAMATE 25 MG TABLET PO SCH ×2 (10:49→21:10)
[2021-12-20] MEDS: THIAMINE HCL 100 MG TABLET (FP) PO SCH (21:10)
[2021-12-20] MEDS: ATORVASTATIN CA 20 MG TABLET (FP) PO SCH (21:10)
[2021-12-20] MEDS: risperiDONE 2 MG TABLET PO SCH (21:10)
[2021-12-20] MEDS: MELATONIN 5 MG TABLETS PO SCH (21:10)
[2021-12-20] MEDS: hydrOXYzine PAMOATE 25 MG CAPSULE (FP) PO PRN (21:12)
[2021-12-21] MEDS: METHYL SALICYLATE/MENTHOL OINT 30 GM TUBE TP SCH ×2 (10:47→21:20)
[2021-12-21] MEDS: NICOTINE 7 MG/24 HOURS TOPICAL PATCH TD SCH (10:47)
[2021-12-21] MEDS: PRENATAL VITAMINS W/ FOLIC ACID TABLET (FP) PO SCH (10:47)
[2021-12-21] MEDS: TIOTROPIUM BROMIDE 2.5 MCG (SPIRIVA) RESPIMAT INHALER IH SCH (10:48)
[2021-12-21] MEDS: LOSARTAN 50MG/HCTZ 12.5MG 1 TAB PO SCH (10:48)
[2021-12-21] MEDS: TOPIRAMATE 25 MG TABLET PO SCH ×2 (10:48→21:18)
[2021-12-21] MEDS: ALBUTEROL SO4 HFA INHALER IH PRN (14:15)
[2021-12-21] MEDS: ATORVASTATIN CA 20 MG TABLET (FP) PO SCH (21:18)
[2021-12-21] MEDS: risperiDONE 2 MG TABLET PO SCH (21:18)
[2021-12-21] MEDS: THIAMINE HCL 100 MG TABLET (FP) PO SCH (21:18)
[2021-12-21] MEDS: hydrOXYzine PAMOATE 25 MG CAPSULE (FP) PO PRN (21:18)
[2021-12-21] MEDS: MELATONIN 5 MG TABLETS PO SCH (21:18)
[2021-12-22 07:17] VITALS: TEMP 97.7
[2021-12-22 09:40] VITALS: BP 120/66; PULSE 85
[2021-12-22] MEDS: TOPIRAMATE 25 MG TABLET PO SCH (10:05)
[2021-12-22] MEDS: LOSARTAN 50MG/HCTZ 12.5MG 1 TAB PO SCH (10:05)
[2021-12-22] MEDS: TIOTROPIUM BROMIDE 2.5 MCG (SPIRIVA) RESPIMAT INHALER IH SCH (10:05)
[2021-12-22] MEDS: PRENATAL VITAMINS W/ FOLIC ACID TABLET (FP) PO SCH (10:05)
[2021-12-22] MEDS: NICOTINE 7 MG/24 HOURS TOPICAL PATCH TD SCH (10:06)
[2021-12-22] MEDS: METHYL SALICYLATE/MENTHOL OINT 30 GM TUBE TP SCH (10:06)
[2021-12-22] MEDS: ALBUTEROL SO4 HFA INHALER IH PRN (10:07)
== END 2021-12-22 10:15 | disposition home or self-care (01) | DRG 895 ==
LOC: YASAS 15:36 → Y5N 15:39
PROVIDERS: ADMIT Allergy & Immunology; ATTEND Allergy & Immunology
PROC: HZ42ZZZ Group Counseling for Substance Abuse Treatment, Cognitive-Behavioral (ICD-10-PCS; principal; 2021-12-08)
DX: F10.20 Alcohol dependence, uncomplicated (principal); F14.20 Cocaine dependence, uncomplicated; F17.210 Nicotine dependence, cigarettes, uncomplicated; F31.9 Bipolar disorder, unspecified; I10 Essential (primary) hypertension; J44.9 Chronic obstructive pulmonary disease, unspecified; E78.5 Hyperlipidemia, unspecified; M17.11 Unilateral primary osteoarthritis, right knee; M16.11 Unilateral primary osteoarthritis, right hip; Z86.19 Personal history of other infectious and parasitic diseases; Z99.89 Dependence on other enabling machines and devices
CPT/HCPCS: C9803-CS; U0003; U0005

== ENCOUNTER 2022-10-11 10:32 | Inpatient (IN) | payer OTHER ==
[2022-10-11 11:14] VITALS: BMI 40.6
[2022-10-11] MEDS ORDERED: MAGNESIUM HYDROX 2400MG/30ML ORAL SUSPENSION 30 ML CUP PO PRN (13:38)
[2022-10-11] MEDS ORDERED: ONDANSETRON *ODT* 4 MG TABLET SL PRN (13:38)
[2022-10-11] MEDS ORDERED: NICOTINE 10 MG CARTRIDGE (INHALER) IH PRN (13:38)
[2022-10-11] MEDS ORDERED: LOPERAMIDE HCL 2 MG CAPSULE PO PRN (13:38)
[2022-10-11] MEDS ORDERED: DICYCLOMINE HCL 10 MG CAPSULE PO PRN (13:38)
[2022-10-11] MEDS ORDERED: MAG HYDROX/AL HYDROX/SIMETH 30 ML UNIT-DOSE CUP PO PRN (13:38)
[2022-10-11] MEDS ORDERED: ACETAMINOPHEN 325 MG TABLET (FP) PO PRN ×2 (13:38)
[2022-10-11] MEDS ORDERED: BISMUTH SUBSALICYLATE 524 MG/30 ML PO PRN (13:38)
[2022-10-11] MEDS ORDERED: NALOXONE HCL (KLOXXADO) 8 MG SPRAY NS PRN (13:38)
[2022-10-11] MEDS ORDERED: hydrOXYzine PAMOATE 25 MG CAPSULE (FP) PO PRN (13:38)
[2022-10-11] MEDS ORDERED: BENZOCAINE/MENTHOL (CHLORASEPTIC ) LOZENGE MM PRN (13:38)
[2022-10-11] MEDS ORDERED: IBUPROFEN 400 MG TABLET (FP) PO PRN (13:38)
[2022-10-11] MEDS ORDERED: IBUPROFEN 600 MG TABLET (FP) PO PRN (13:38)
[2022-10-11] MEDS ORDERED: POLYETHYLENE GLYCOL (HEALTHYLAX) 3350 17 GM PACKET PO PRN (13:38)
[2022-10-11] MEDS ORDERED: LORazepam 1 MG TABLET PO PRN (13:40)
[2022-10-11] MEDS ORDERED: FOLIC ACID INJECTION - 1 MG, THIAMINE HCL 100 MG, MULTIVIT INJECTION ADULT 10 ML in SOD... IVPB ONE (13:41)
[2022-10-11] MEDS ORDERED: chlordiazePOXIDE HCL 25 MG CAPSULE PO PRN (13:52)
[2022-10-11] MEDS: PRENATAL VITAMINS W/ FOLIC ACID TABLET (FP) PO SCH (14:34)
[2022-10-11] MEDS ORDERED: PATIENT'S OWN MEDICATION (NON-FORMULARY) (Losartan/Hydrochlorothiazide [Losartan-Hctz 100- PO SCH (15:30)
[2022-10-11] MEDS: HYDROCHLOROTHIAZIDE 12.5 MG CAPSULE (FP) PO SCH (16:37)
[2022-10-11] MEDS: LOSARTAN POTASSIUM 50 MG TABLET PO SCH (16:37)
[2022-10-11] MEDS ORDERED: LORazepam 2 MG TABLET PO SCH (17:00)
[2022-10-11] MEDS: chlordiazePOXIDE HCL 25 MG CAPSULE PO SCH ×2 (17:37→22:21)
[2022-10-11] MEDS: MELATONIN 5 MG TABLETS PO SCH (22:20)
[2022-10-11] MEDS: ATORVASTATIN CA 20 MG TABLET (FP) PO SCH (22:21)
[2022-10-11] MEDS: THIAMINE HCL 100 MG TABLET (FP) PO SCH (22:21)
[2022-10-12] MEDS: chlordiazePOXIDE HCL 25 MG CAPSULE PO SCH ×4 (05:26→22:09)
[2022-10-12] MEDS: HYDROCHLOROTHIAZIDE 12.5 MG CAPSULE (FP) PO SCH (10:16)
[2022-10-12] MEDS: PRENATAL VITAMINS W/ FOLIC ACID TABLET (FP) PO SCH (10:16)
[2022-10-12] MEDS: LOSARTAN POTASSIUM 50 MG TABLET PO SCH (10:16)
[2022-10-12 12:17] LABS: HEMATOCRIT 41.6 % (32.4-45.2); HEMOGLOBIN 13.9 GM/dL (10.7-15.3); MCH 32.3 pg (25.7-33.7); MCHC 33.4 g/dl (32.0-36.0); MEAN CELL VOLUME 96.8 fl (80-96); MEAN PLT VOLUME 7.3 fl (7.5-11.1); PLATELET COUNT 236 10^3/uL (134-434); WHITE BLOOD COUNT 5.2 K/mm3 (4.0-10.0)
[2022-10-12 13:06] LABS: BLOOD UREA NITROGEN 10.8 mg/dL (7-18); CALCIUM 9.5 mg/dL (8.5-10.1)
[2022-10-12 13:07] LABS: ALBUMIN 3.3 g/dl (3.4-5.0)
[2022-10-12 13:09] LABS: CREATININE 0.9 mg/dL (0.55-1.3)
[2022-10-12 13:11] LABS: BILIRUBIN,TOTAL 0.9 mg/dL (0.2-1); TOT PROT 7.1 g/dl (6.4-8.2)
[2022-10-12] MEDS: METHOCARBAMOL 500 MG TABLET PO PRN (17:19)
[2022-10-12] MEDS: MELATONIN 5 MG TABLETS PO SCH (22:09)
[2022-10-12] MEDS: THIAMINE HCL 100 MG TABLET (FP) PO SCH (22:09)
[2022-10-12] MEDS: ATORVASTATIN CA 20 MG TABLET (FP) PO SCH (22:09)
[2022-10-13] MEDS ORDERED: LORazepam 1 MG TABLET PO SCH (05:00)
[2022-10-13] MEDS ORDERED: chlordiazePOXIDE HCL 10 MG CAPSULE PO PRN (05:00)
[2022-10-13] MEDS: chlordiazePOXIDE HCL 25 MG CAPSULE PO SCH ×4 (05:51→23:01)
[2022-10-13] MEDS: HYDROCHLOROTHIAZIDE 12.5 MG CAPSULE (FP) PO SCH (10:26)
[2022-10-13] MEDS: PRENATAL VITAMINS W/ FOLIC ACID TABLET (FP) PO SCH (10:26)
[2022-10-13] MEDS: LOSARTAN POTASSIUM 50 MG TABLET PO SCH (10:26)
[2022-10-13] MEDS: ALBUTEROL SO4 HFA INHALER IH PRN (10:32)
[2022-10-13] MEDS: METHOCARBAMOL 500 MG TABLET PO PRN (11:14)
[2022-10-13] MEDS ORDERED: ALBUTEROL SO4 2.5/IPRATROPIUM 0.5 INH SOL 3 ML VIAL.NEB. NEB PRN (11:14)
[2022-10-13] MEDS: TIOTROPIUM BROMIDE 2.5 MCG (SPIRIVA) RESPIMAT INHALER IH SCH (11:16)
[2022-10-13] MEDS: MELATONIN 5 MG TABLETS PO SCH (23:00)
[2022-10-13] MEDS: ATORVASTATIN CA 20 MG TABLET (FP) PO SCH (23:00)
[2022-10-13] MEDS: THIAMINE HCL 100 MG TABLET (FP) PO SCH (23:01)
[2022-10-14] MEDS ORDERED: LORazepam 0.5 MG TABLET PO PRN
[2022-10-14] MEDS ORDERED: LORazepam 0.5 MG TABLET PO SCH (05:00)
[2022-10-14] MEDS: METHOCARBAMOL 500 MG TABLET PO PRN ×2 (06:00→18:04)
[2022-10-14] MEDS: chlordiazePOXIDE HCL 10 MG CAPSULE PO SCH ×4 (06:00→22:31)
[2022-10-14] MEDS: LOSARTAN POTASSIUM 50 MG TABLET PO SCH (10:35)
[2022-10-14] MEDS: PRENATAL VITAMINS W/ FOLIC ACID TABLET (FP) PO SCH (10:35)
[2022-10-14] MEDS: HYDROCHLOROTHIAZIDE 12.5 MG CAPSULE (FP) PO SCH (10:36)
[2022-10-14] MEDS: ALBUTEROL SO4 HFA INHALER IH PRN (10:36)
[2022-10-14] MEDS: TIOTROPIUM BROMIDE 2.5 MCG (SPIRIVA) RESPIMAT INHALER IH SCH (10:37)
[2022-10-14] MEDS: TOPIRAMATE 25 MG TABLET PO SCH ×2 (11:13→22:30)
[2022-10-14] MEDS: MELATONIN 5 MG TABLETS PO SCH (22:30)
[2022-10-14] MEDS: THIAMINE HCL 100 MG TABLET (FP) PO SCH (22:30)
[2022-10-14] MEDS: risperiDONE 2 MG TABLET PO SCH (22:30)
[2022-10-14] MEDS: ATORVASTATIN CA 20 MG TABLET (FP) PO SCH (22:32)
[2022-10-15] MEDS ORDERED: LORazepam 0.5 MG TABLET PO ONE (05:00)
[2022-10-15] MEDS: chlordiazePOXIDE HCL 10 MG CAPSULE PO SCH ×2 (05:30→17:12)
[2022-10-15] MEDS: TIOTROPIUM BROMIDE 2.5 MCG (SPIRIVA) RESPIMAT INHALER IH SCH (10:25)
[2022-10-15] MEDS: LOSARTAN POTASSIUM 50 MG TABLET PO SCH (10:26)
[2022-10-15] MEDS: HYDROCHLOROTHIAZIDE 12.5 MG CAPSULE (FP) PO SCH (10:26)
[2022-10-15] MEDS: PRENATAL VITAMINS W/ FOLIC ACID TABLET (FP) PO SCH (10:26)
[2022-10-15] MEDS: TOPIRAMATE 25 MG TABLET PO SCH ×2 (10:26→22:38)
[2022-10-15] MEDS ORDERED: NICOTINE POLACRILEX 2 MG GUM BUC PRN (12:29)
[2022-10-15] MEDS: NICOTINE 7 MG/24 HOURS TOPICAL PATCH TD SCH (13:03)
[2022-10-15] MEDS: METHOCARBAMOL 500 MG TABLET PO PRN (17:12)
[2022-10-15] MEDS: THIAMINE HCL 100 MG TABLET (FP) PO SCH (22:37)
[2022-10-15] MEDS: MELATONIN 5 MG TABLETS PO SCH (22:37)
[2022-10-15] MEDS: risperiDONE 2 MG TABLET PO SCH (22:38)
[2022-10-15] MEDS: ATORVASTATIN CA 20 MG TABLET (FP) PO SCH (22:38)
[2022-10-16] MEDS ORDERED: chlordiazePOXIDE HCL 10 MG CAPSULE PO ONE (05:00)
[2022-10-16] MEDS: chlordiazePOXIDE HCL 10 MG CAPSULE PO SCH (06:25)
[2022-10-16 06:38] VITALS: RESP 18
[2022-10-16] MEDS: HYDROCHLOROTHIAZIDE 12.5 MG CAPSULE (FP) PO SCH (10:49)
[2022-10-16] MEDS: LOSARTAN POTASSIUM 50 MG TABLET PO SCH (10:49)
[2022-10-16] MEDS: TIOTROPIUM BROMIDE 2.5 MCG (SPIRIVA) RESPIMAT INHALER IH SCH (10:49)
[2022-10-16] MEDS: NICOTINE 7 MG/24 HOURS TOPICAL PATCH TD SCH (10:49)
[2022-10-16] MEDS: TOPIRAMATE 25 MG TABLET PO SCH (10:49)
[2022-10-16] MEDS: PRENATAL VITAMINS W/ FOLIC ACID TABLET (FP) PO SCH (10:49)
[2022-10-16 13:27] VITALS: BP 129/59; PULSE 86; TEMP 97.5
[2022-10-16] MEDS: METHOCARBAMOL 500 MG TABLET PO PRN (14:32)
== END 2022-10-16 15:40 | disposition home or self-care (01) | DRG 897 ==
LOC: YASAS 10:32 → Y6N 12:50
PROVIDERS: ADMIT Allergy & Immunology; ATTEND Surgery
PROC: HZ2ZZZZ Detoxification Services for Substance Abuse Treatment (ICD-10-PCS; principal; 2022-10-11)
DX: F10.230 Alcohol dependence with withdrawal, uncomplicated (principal); F14.20 Cocaine dependence, uncomplicated; F12.20 Cannabis dependence, uncomplicated; F17.210 Nicotine dependence, cigarettes, uncomplicated; F31.9 Bipolar disorder, unspecified; F19.24 Other psychoactive substance dependence with psychoactive substance-induced mood disorder; E78.5 Hyperlipidemia, unspecified; I10 Essential (primary) hypertension; J44.9 Chronic obstructive pulmonary disease, unspecified; M17.11 Unilateral primary osteoarthritis, right knee; M16.11 Unilateral primary osteoarthritis, right hip; Z99.89 Dependence on other enabling machines and devices
CPT/HCPCS: 36415; 80053; 85027; 86593; 86780; C9803-CS; U0003; U0005

== ENCOUNTER 2022-12-13 10:09 | Inpatient (IN) | payer OTHER ==
[2022-12-13 10:30] VITALS: BMI 40.3
[2022-12-13] MEDS ORDERED: ONDANSETRON *ODT* 4 MG TABLET SL PRN (11:20)
[2022-12-13] MEDS ORDERED: guaiFENesin 600 MG TABLET.ER (FP) PO PRN (11:20)
[2022-12-13] MEDS ORDERED: IBUPROFEN 400 MG TABLET (FP) PO PRN (11:20)
[2022-12-13] MEDS ORDERED: ACETAMINOPHEN 325 MG TABLET (FP) PO PRN (11:20)
[2022-12-13] MEDS ORDERED: NICOTINE 7 MG/24 HOURS TOPICAL PATCH TD PRN (11:20)
[2022-12-13] MEDS ORDERED: MAGNESIUM HYDROX 2400MG/30ML ORAL SUSPENSION 30 ML CUP PO PRN (11:20)
[2022-12-13] MEDS ORDERED: LOPERAMIDE HCL 2 MG CAPSULE PO PRN (11:20)
[2022-12-13] MEDS ORDERED: NICOTINE POLACRILEX 2 MG GUM BUC PRN (11:20)
[2022-12-13] MEDS ORDERED: POLYETHYLENE GLYCOL (HEALTHYLAX) 3350 17 GM PACKET PO PRN (11:20)
[2022-12-13] MEDS ORDERED: BENZOCAINE/MENTHOL (CHLORASEPTIC ) LOZENGE MM PRN (11:20)
[2022-12-13] MEDS ORDERED: chlordiazePOXIDE HCL 25 MG CAPSULE PO PRN (11:20)
[2022-12-13] MEDS ORDERED: BISMUTH SUBSALICYLATE 262 MG/15 ML BTL PO PRN (11:20)
[2022-12-13] MEDS ORDERED: MAG HYDROX/AL HYDROX/SIMETH 30 ML UNIT-DOSE CUP PO PRN (11:20)
[2022-12-13] MEDS ORDERED: IBUPROFEN 600 MG TABLET (FP) PO PRN (11:20)
[2022-12-13] MEDS ORDERED: BENZONATATE 200 MG CAPSULE PO PRN (11:20)
[2022-12-13] MEDS: PATIENT'S OWN MEDICATION (NON-FORMULARY) (Umeclidinium Bromide [Incruse Ellipta] 62.5 MCG IH SCH (14:16)
[2022-12-13 16:08] LABS: HEMATOCRIT 40.2 % (32.4-45.2); HEMOGLOBIN 12.9 GM/dL (10.7-15.3); MCH 30.9 pg (25.7-33.7); MCHC 32.1 g/dl (32.0-36.0); MEAN CELL VOLUME 96.1 fl (80-96); MEAN PLT VOLUME 7.6 fl (7.5-11.1); PLATELET COUNT 216 10^3/uL (134-434); RBC 4.19 M/mm3 (3.60-5.2); RDW 15.6 % (11.6-15.6); WHITE BLOOD COUNT 5.3 K/mm3 (4.0-10.0)
[2022-12-13 16:20] LABS: CALCIUM 8.8 mg/dL (8.5-10.1)
[2022-12-13 16:21] LABS: ALBUMIN 3.3 g/dl (3.4-5.0); BLOOD UREA NITROGEN 8.2 mg/dL (7-18)
[2022-12-13 16:24] LABS: CREATININE 0.7 mg/dL (0.55-1.3)
[2022-12-13 16:26] LABS: BILIRUBIN,TOTAL 0.7 mg/dL (0.2-1); TOT PROT 6.9 g/dl (6.4-8.2)
[2022-12-13] MEDS: chlordiazePOXIDE HCL 25 MG CAPSULE PO SCH ×2 (17:52→22:32)
[2022-12-13] MEDS: THIAMINE HCL 100 MG TABLET (FP) PO SCH (22:31)
[2022-12-13] MEDS: MELATONIN 5 MG TABLETS PO SCH (22:31)
[2022-12-13] MEDS: ATORVASTATIN CA 20 MG TABLET (FP) PO SCH (22:31)
[2022-12-13] MEDS: ALBUTEROL SO4 HFA INHALER IH PRN (22:32)
[2022-12-14] MEDS: chlordiazePOXIDE HCL 25 MG CAPSULE PO SCH ×4 (06:00→22:23)
[2022-12-14] MEDS: PRENATAL VITAMINS W/ FOLIC ACID TABLET (FP) PO SCH (10:26)
[2022-12-14] MEDS: LOSARTAN POTASSIUM 50 MG TABLET PO SCH (10:26)
[2022-12-14] MEDS: HYDROCHLOROTHIAZIDE 12.5 MG CAPSULE (FP) PO SCH (10:26)
[2022-12-14] MEDS: PATIENT'S OWN MEDICATION (NON-FORMULARY) (Umeclidinium Bromide [Incruse Ellipta] 62.5 MCG IH SCH (10:28)
[2022-12-14] MEDS: ALBUTEROL SO4 HFA INHALER IH PRN (12:55)
[2022-12-14] MEDS: TOPIRAMATE 25 MG TABLET PO SCH (22:22)
[2022-12-14] MEDS: MELATONIN 5 MG TABLETS PO SCH (22:22)
[2022-12-14] MEDS: risperiDONE 1 MG TABLET PO SCH (22:22)
[2022-12-14] MEDS: ATORVASTATIN CA 20 MG TABLET (FP) PO SCH (22:22)
[2022-12-14] MEDS: THIAMINE HCL 100 MG TABLET (FP) PO SCH (22:22)
[2022-12-14] MEDS: hydrOXYzine PAMOATE 25 MG CAPSULE (FP) PO PRN (22:24)
[2022-12-15] MEDS: chlordiazePOXIDE HCL 25 MG CAPSULE PO SCH ×4 (05:58→22:28)
[2022-12-15] MEDS: TOPIRAMATE 25 MG TABLET PO SCH ×2 (10:15→22:28)
[2022-12-15] MEDS: HYDROCHLOROTHIAZIDE 12.5 MG CAPSULE (FP) PO SCH (10:15)
[2022-12-15] MEDS: PRENATAL VITAMINS W/ FOLIC ACID TABLET (FP) PO SCH (10:15)
[2022-12-15] MEDS: LOSARTAN POTASSIUM 50 MG TABLET PO SCH (10:15)
[2022-12-15] MEDS: PATIENT'S OWN MEDICATION (NON-FORMULARY) (Umeclidinium Bromide [Incruse Ellipta] 62.5 MCG IH SCH (10:16)
[2022-12-15] MEDS: ATORVASTATIN CA 20 MG TABLET (FP) PO SCH (22:27)
[2022-12-15] MEDS: MELATONIN 5 MG TABLETS PO SCH (22:27)
[2022-12-15] MEDS: THIAMINE HCL 100 MG TABLET (FP) PO SCH (22:28)
[2022-12-15] MEDS: hydrOXYzine PAMOATE 25 MG CAPSULE (FP) PO PRN (22:28)
[2022-12-15] MEDS: risperiDONE 1 MG TABLET PO SCH (22:28)
[2022-12-16] MEDS ORDERED: chlordiazePOXIDE HCL 10 MG CAPSULE PO PRN
[2022-12-16] MEDS: chlordiazePOXIDE HCL 10 MG CAPSULE PO SCH ×4 (05:39→22:36)
[2022-12-16] MEDS: PRENATAL VITAMINS W/ FOLIC ACID TABLET (FP) PO SCH (10:29)
[2022-12-16] MEDS: TOPIRAMATE 25 MG TABLET PO SCH ×2 (10:29→22:36)
[2022-12-16] MEDS: LOSARTAN POTASSIUM 50 MG TABLET PO SCH (10:29)
[2022-12-16] MEDS: PATIENT'S OWN MEDICATION (NON-FORMULARY) (Umeclidinium Bromide [Incruse Ellipta] 62.5 MCG IH SCH (10:29)
[2022-12-16] MEDS: HYDROCHLOROTHIAZIDE 12.5 MG CAPSULE (FP) PO SCH (10:29)
[2022-12-16] MEDS: ALBUTEROL SO4 HFA INHALER IH PRN ×2 (10:32→17:33)
[2022-12-16] MEDS: ATORVASTATIN CA 20 MG TABLET (FP) PO SCH (22:35)
[2022-12-16] MEDS: risperiDONE 1 MG TABLET PO SCH (22:35)
[2022-12-16] MEDS: THIAMINE HCL 100 MG TABLET (FP) PO SCH (22:35)
[2022-12-16] MEDS: MELATONIN 5 MG TABLETS PO SCH (22:36)
[2022-12-17] MEDS: chlordiazePOXIDE HCL 10 MG CAPSULE PO SCH ×2 (05:22→17:32)
[2022-12-17] MEDS: ALBUTEROL SO4 HFA INHALER IH PRN ×2 (10:28→22:18)
[2022-12-17] MEDS: PRENATAL VITAMINS W/ FOLIC ACID TABLET (FP) PO SCH (10:28)
[2022-12-17] MEDS: PATIENT'S OWN MEDICATION (NON-FORMULARY) (Umeclidinium Bromide [Incruse Ellipta] 62.5 MCG IH SCH (10:29)
[2022-12-17] MEDS: LOSARTAN POTASSIUM 50 MG TABLET PO SCH (10:29)
[2022-12-17] MEDS: HYDROCHLOROTHIAZIDE 12.5 MG CAPSULE (FP) PO SCH (10:29)
[2022-12-17] MEDS: TOPIRAMATE 25 MG TABLET PO SCH ×2 (10:29→22:18)
[2022-12-17 18:10] VITALS: RESP 18
[2022-12-17] MEDS: risperiDONE 1 MG TABLET PO SCH (22:18)
[2022-12-17] MEDS: ATORVASTATIN CA 20 MG TABLET (FP) PO SCH (22:18)
[2022-12-17] MEDS: THIAMINE HCL 100 MG TABLET (FP) PO SCH (22:18)
[2022-12-17] MEDS: MELATONIN 5 MG TABLETS PO SCH (22:18)
[2022-12-17] MEDS: hydrOXYzine PAMOATE 25 MG CAPSULE (FP) PO PRN (22:22)
[2022-12-18] MEDS ORDERED: chlordiazePOXIDE HCL 10 MG CAPSULE PO ONE (05:00)
[2022-12-18] MEDS: HYDROCHLOROTHIAZIDE 12.5 MG CAPSULE (FP) PO SCH (09:18)
[2022-12-18] MEDS: LOSARTAN POTASSIUM 50 MG TABLET PO SCH (09:18)
[2022-12-18] MEDS: PRENATAL VITAMINS W/ FOLIC ACID TABLET (FP) PO SCH (09:18)
[2022-12-18] MEDS: TOPIRAMATE 25 MG TABLET PO SCH (09:18)
[2022-12-18] MEDS: ALBUTEROL SO4 HFA INHALER IH PRN (09:19)
[2022-12-18] MEDS: PATIENT'S OWN MEDICATION (NON-FORMULARY) (Umeclidinium Bromide [Incruse Ellipta] 62.5 MCG IH SCH (09:21)
[2022-12-18 12:48] VITALS: BP 101/62; PULSE 89; TEMP 97.3
== END 2022-12-18 14:40 | disposition other institution (70) | DRG 897 ==
LOC: YASAS 10:09 → Y3N 11:51
PROVIDERS: ADMIT Allergy & Immunology; ATTEND Surgery
PROC: HZ2ZZZZ Detoxification Services for Substance Abuse Treatment (ICD-10-PCS; principal; 2022-12-13)
DX: F10.230 Alcohol dependence with withdrawal, uncomplicated (principal); F14.20 Cocaine dependence, uncomplicated; Z68.41 Body mass index [BMI] 40.0-44.9, adult; F12.20 Cannabis dependence, uncomplicated; F17.210 Nicotine dependence, cigarettes, uncomplicated; F31.9 Bipolar disorder, unspecified; F25.0 Schizoaffective disorder, bipolar type; I10 Essential (primary) hypertension; J43.0 Unilateral pulmonary emphysema [MacLeod's syndrome]; M17.11 Unilateral primary osteoarthritis, right knee; M16.11 Unilateral primary osteoarthritis, right hip; R76.8 Other specified abnormal immunological findings in serum; E66.01 Morbid (severe) obesity due to excess calories; Z99.89 Dependence on other enabling machines and devices
CPT/HCPCS: 36415; 80053; 85027; 86593; 86780; C9803-CS; U0003; U0005

== ENCOUNTER 2022-12-18 14:53 | Inpatient (IN) | payer OTHER ==
[2022-12-18] MEDS ORDERED: ACETAMINOPHEN 325 MG TABLET (FP) PO PRN (17:35)
[2022-12-18] MEDS ORDERED: MAG HYDROX/AL HYDROX/SIMETH 30 ML UNIT-DOSE CUP PO PRN (17:35)
[2022-12-18] MEDS ORDERED: IBUPROFEN 400 MG TABLET (FP) PO PRN (17:35)
[2022-12-18] MEDS ORDERED: POLYETHYLENE GLYCOL (HEALTHYLAX) 3350 17 GM PACKET PO PRN (17:35)
[2022-12-18] MEDS ORDERED: P-EPHED 60MG/TRIPROLIDI 2.5MG TABLET PO PRN (17:35)
[2022-12-18] MEDS ORDERED: LOPERAMIDE HCL 2 MG CAPSULE PO PRN (17:35)
[2022-12-18] MEDS ORDERED: IBUPROFEN 600 MG TABLET (FP) PO PRN (17:35)
[2022-12-18] MEDS ORDERED: guaiFENesin 600 MG TABLET.ER (FP) PO PRN (17:35)
[2022-12-18] MEDS ORDERED: MAGNESIUM HYDROX 2400MG/30ML ORAL SUSPENSION 30 ML CUP PO PRN (17:35)
[2022-12-18] MEDS ORDERED: BENZONATATE 200 MG CAPSULE PO PRN (17:35)
[2022-12-18] MEDS ORDERED: COLLOIDAL OATMEAL 1 BAR EACH TP PRN (17:35)
[2022-12-18] MEDS ORDERED: AMMONIUM LACTATE 12% LOTION 225 GM BOTTLE TP PRN (17:35)
[2022-12-18] MEDS ORDERED: BENZOCAINE/MENTHOL (CHLORASEPTIC ) LOZENGE MM PRN (17:35)
[2022-12-18] MEDS ORDERED: ALBUTEROL SO4 2.5/IPRATROPIUM 0.5 INH SOL 3 ML VIAL.NEB. NEB PRN (17:37)
[2022-12-18] MEDS: ATORVASTATIN CA 20 MG TABLET (FP) PO SCH (21:12)
[2022-12-18] MEDS: risperiDONE 1 MG TABLET PO SCH (21:12)
[2022-12-18] MEDS: THIAMINE HCL 100 MG TABLET (FP) PO SCH (21:12)
[2022-12-18] MEDS ORDERED: TOPIRAMATE 25 MG TABLET PO ONE (22:00)
[2022-12-19] MEDS: HYDROCHLOROTHIAZIDE 12.5 MG CAPSULE (FP) PO SCH (10:05)
[2022-12-19] MEDS: PRENATAL VITAMINS W/ FOLIC ACID TABLET (FP) PO SCH (10:05)
[2022-12-19] MEDS: UMECLIDINIUM IH SCH (10:06)
[2022-12-19] MEDS: LOSARTAN POTASSIUM 50 MG TABLET PO SCH (10:06)
[2022-12-19] MEDS: ALBUTEROL SO4 HFA INHALER IH PRN (10:08)
[2022-12-19] MEDS ORDERED: PNEUMOC 20-VAL CONJ-DIP CRM/PF 0.5 ML SYRINGE IM ONE (12:00)
[2022-12-19] MEDS: TOPIRAMATE 25 MG TABLET PO SCH (13:51)
[2022-12-19] MEDS: risperiDONE 1 MG TABLET PO SCH ×2 (13:53→21:16)
[2022-12-19] MEDS: ATORVASTATIN CA 20 MG TABLET (FP) PO SCH (21:16)
[2022-12-19] MEDS: THIAMINE HCL 100 MG TABLET (FP) PO SCH (21:16)
[2022-12-19] MEDS: TOPIRAMATE 100 MG TABLET PO SCH (21:17)
[2022-12-20] MEDS: PRENATAL VITAMINS W/ FOLIC ACID TABLET (FP) PO SCH (09:41)
[2022-12-20] MEDS: LOSARTAN POTASSIUM 50 MG TABLET PO SCH (09:42)
[2022-12-20] MEDS: TOPIRAMATE 25 MG TABLET PO SCH (09:43)
[2022-12-20] MEDS: HYDROCHLOROTHIAZIDE 12.5 MG CAPSULE (FP) PO SCH (09:43)
[2022-12-20] MEDS: UMECLIDINIUM IH SCH (09:45)
[2022-12-20] MEDS: ATORVASTATIN CA 20 MG TABLET (FP) PO SCH (21:24)
[2022-12-20] MEDS: TOPIRAMATE 100 MG TABLET PO SCH (21:24)
[2022-12-20] MEDS: ALBUTEROL SO4 HFA INHALER IH PRN (21:24)
[2022-12-20] MEDS: THIAMINE HCL 100 MG TABLET (FP) PO SCH (21:25)
[2022-12-20] MEDS: risperiDONE 1 MG TABLET PO SCH (21:25)
[2022-12-21] MEDS: LOSARTAN POTASSIUM 50 MG TABLET PO SCH (09:40)
[2022-12-21] MEDS: HYDROCHLOROTHIAZIDE 12.5 MG CAPSULE (FP) PO SCH (09:40)
[2022-12-21] MEDS: PRENATAL VITAMINS W/ FOLIC ACID TABLET (FP) PO SCH (09:40)
[2022-12-21] MEDS: UMECLIDINIUM IH SCH (09:41)
[2022-12-21] MEDS: TOPIRAMATE 25 MG TABLET PO SCH (10:32)
[2022-12-21] MEDS: ATORVASTATIN CA 20 MG TABLET (FP) PO SCH (21:13)
[2022-12-21] MEDS: THIAMINE HCL 100 MG TABLET (FP) PO SCH (21:13)
[2022-12-21] MEDS: TOPIRAMATE 100 MG TABLET PO SCH (21:14)
[2022-12-21] MEDS: risperiDONE 1 MG TABLET PO SCH (21:14)
[2022-12-22] MEDS: LOSARTAN POTASSIUM 50 MG TABLET PO SCH (10:17)
[2022-12-22] MEDS: PRENATAL VITAMINS W/ FOLIC ACID TABLET (FP) PO SCH (10:17)
[2022-12-22] MEDS: UMECLIDINIUM IH SCH (10:19)
[2022-12-22] MEDS: TOPIRAMATE 25 MG TABLET PO SCH (10:19)
[2022-12-22] MEDS: HYDROCHLOROTHIAZIDE 12.5 MG CAPSULE (FP) PO SCH (10:20)
[2022-12-22] MEDS: NICOTINE 14 MG/24 HOURS TOPICAL PATCH TD SCH (11:07)
[2022-12-22] MEDS: THIAMINE HCL 100 MG TABLET (FP) PO SCH (21:19)
[2022-12-22] MEDS: risperiDONE 1 MG TABLET PO SCH (21:19)
[2022-12-22] MEDS: TOPIRAMATE 100 MG TABLET PO SCH (21:19)
[2022-12-22] MEDS: ATORVASTATIN CA 20 MG TABLET (FP) PO SCH (21:19)
[2022-12-23] MEDS: PRENATAL VITAMINS W/ FOLIC ACID TABLET (FP) PO SCH (10:30)
[2022-12-23] MEDS: LOSARTAN POTASSIUM 50 MG TABLET PO SCH (10:31)
[2022-12-23] MEDS: HYDROCHLOROTHIAZIDE 12.5 MG CAPSULE (FP) PO SCH (10:31)
[2022-12-23] MEDS: NICOTINE 14 MG/24 HOURS TOPICAL PATCH TD SCH (10:31)
[2022-12-23] MEDS: UMECLIDINIUM IH SCH (10:32)
[2022-12-23] MEDS: TOPIRAMATE 25 MG TABLET PO SCH (10:33)
[2022-12-23] MEDS ORDERED: NICOTINE 14 MG/24 HOURS TOPICAL PATCH TD SCH (10:45)
[2022-12-23] MEDS: MELATONIN 5 MG TABLETS PO PRN (21:33)
[2022-12-23] MEDS: TOPIRAMATE 100 MG TABLET PO SCH (21:34)
[2022-12-23] MEDS: risperiDONE 1 MG TABLET PO SCH (21:34)
[2022-12-23] MEDS: THIAMINE HCL 100 MG TABLET (FP) PO SCH (21:34)
[2022-12-23] MEDS: ATORVASTATIN CA 20 MG TABLET (FP) PO SCH (21:34)
[2022-12-24] MEDS: TOPIRAMATE 25 MG TABLET PO SCH (10:20)
[2022-12-24] MEDS: HYDROCHLOROTHIAZIDE 12.5 MG CAPSULE (FP) PO SCH (10:20)
[2022-12-24] MEDS: PRENATAL VITAMINS W/ FOLIC ACID TABLET (FP) PO SCH (10:20)
[2022-12-24] MEDS: LOSARTAN POTASSIUM 50 MG TABLET PO SCH (10:20)
[2022-12-24] MEDS: NICOTINE 14 MG/24 HOURS TOPICAL PATCH TD SCH (10:21)
[2022-12-24] MEDS: UMECLIDINIUM IH SCH (10:24)
[2022-12-24 17:32] VITALS: RESP 18
[2022-12-24] MEDS: MELATONIN 5 MG TABLETS PO PRN (21:48)
[2022-12-24] MEDS: THIAMINE HCL 100 MG TABLET (FP) PO SCH (21:48)
[2022-12-24] MEDS: TOPIRAMATE 100 MG TABLET PO SCH (21:48)
[2022-12-24] MEDS: risperiDONE 1 MG TABLET PO SCH (21:48)
[2022-12-24] MEDS: ATORVASTATIN CA 20 MG TABLET (FP) PO SCH (21:48)
[2022-12-25] MEDS: ALBUTEROL SO4 HFA INHALER IH PRN (04:16)
[2022-12-25] MEDS: PRENATAL VITAMINS W/ FOLIC ACID TABLET (FP) PO SCH (10:06)
[2022-12-25] MEDS: TOPIRAMATE 25 MG TABLET PO SCH (10:07)
[2022-12-25] MEDS: LOSARTAN POTASSIUM 50 MG TABLET PO SCH (10:07)
[2022-12-25] MEDS: HYDROCHLOROTHIAZIDE 12.5 MG CAPSULE (FP) PO SCH (10:07)
[2022-12-25] MEDS: UMECLIDINIUM IH SCH (10:08)
[2022-12-25] MEDS: NICOTINE 14 MG/24 HOURS TOPICAL PATCH TD SCH (10:08)
[2022-12-25] MEDS: risperiDONE 1 MG TABLET PO SCH (21:14)
[2022-12-25] MEDS: ATORVASTATIN CA 20 MG TABLET (FP) PO SCH (21:15)
[2022-12-25] MEDS: TOPIRAMATE 100 MG TABLET PO SCH (21:15)
[2022-12-25] MEDS: THIAMINE HCL 100 MG TABLET (FP) PO SCH (21:15)
[2022-12-25] MEDS: MELATONIN 5 MG TABLETS PO PRN (21:16)
[2022-12-26] MEDS: PRENATAL VITAMINS W/ FOLIC ACID TABLET (FP) PO SCH (09:44)
[2022-12-26] MEDS: HYDROCHLOROTHIAZIDE 12.5 MG CAPSULE (FP) PO SCH (09:46)
[2022-12-26] MEDS: LOSARTAN POTASSIUM 50 MG TABLET PO SCH (09:46)
[2022-12-26] MEDS: UMECLIDINIUM IH SCH (09:46)
[2022-12-26] MEDS: TOPIRAMATE 25 MG TABLET PO SCH (09:47)
[2022-12-26] MEDS: NICOTINE 14 MG/24 HOURS TOPICAL PATCH TD SCH (09:48)
[2022-12-26] MEDS: ATORVASTATIN CA 20 MG TABLET (FP) PO SCH (21:14)
[2022-12-26] MEDS: THIAMINE HCL 100 MG TABLET (FP) PO SCH (21:14)
[2022-12-26] MEDS: ALBUTEROL SO4 HFA INHALER IH PRN (21:14)
[2022-12-26] MEDS: TOPIRAMATE 100 MG TABLET PO SCH (21:14)
[2022-12-26] MEDS: risperiDONE 1 MG TABLET PO SCH (21:14)
[2022-12-26] MEDS: NICOTINE POLACRILEX 2 MG GUM BUC PRN (21:17)
[2022-12-26] MEDS: MELATONIN 5 MG TABLETS PO PRN (21:17)
[2022-12-27] MEDS: UMECLIDINIUM IH SCH (10:08)
[2022-12-27] MEDS: HYDROCHLOROTHIAZIDE 12.5 MG CAPSULE (FP) PO SCH (10:08)
[2022-12-27] MEDS: TOPIRAMATE 25 MG TABLET PO SCH (10:08)
[2022-12-27] MEDS: LOSARTAN POTASSIUM 50 MG TABLET PO SCH (10:08)
[2022-12-27] MEDS: PRENATAL VITAMINS W/ FOLIC ACID TABLET (FP) PO SCH (10:08)
[2022-12-27] MEDS: NICOTINE 14 MG/24 HOURS TOPICAL PATCH TD SCH (10:09)
[2022-12-27] MEDS: NICOTINE POLACRILEX 2 MG GUM BUC PRN ×2 (13:00→21:12)
[2022-12-27] MEDS: METHYL SALICYLATE/MENTHOL OINT 30 GM TUBE TP PRN ×2 (13:01→21:15)
[2022-12-27] MEDS: risperiDONE 1 MG TABLET PO SCH (21:10)
[2022-12-27] MEDS: ATORVASTATIN CA 20 MG TABLET (FP) PO SCH (21:10)
[2022-12-27] MEDS: MELATONIN 5 MG TABLETS PO PRN (21:11)
[2022-12-27] MEDS: TOPIRAMATE 100 MG TABLET PO SCH (21:11)
[2022-12-27] MEDS: THIAMINE HCL 100 MG TABLET (FP) PO SCH (21:11)
[2022-12-27] MEDS: ALBUTEROL SO4 HFA INHALER IH PRN (21:14)
[2022-12-28] MEDS: PRENATAL VITAMINS W/ FOLIC ACID TABLET (FP) PO SCH (09:37)
[2022-12-28] MEDS: HYDROCHLOROTHIAZIDE 12.5 MG CAPSULE (FP) PO SCH (09:38)
[2022-12-28] MEDS: TOPIRAMATE 25 MG TABLET PO SCH (09:38)
[2022-12-28] MEDS: LOSARTAN POTASSIUM 50 MG TABLET PO SCH (09:38)
[2022-12-28] MEDS: NICOTINE 14 MG/24 HOURS TOPICAL PATCH TD SCH (09:39)
[2022-12-28] MEDS: UMECLIDINIUM IH SCH (09:40)
[2022-12-28] MEDS: METHYL SALICYLATE/MENTHOL OINT 30 GM TUBE TP PRN ×2 (09:41→21:32)
[2022-12-28] MEDS: NICOTINE POLACRILEX 2 MG GUM BUC PRN (09:43)
[2022-12-28] MEDS: VARENICLINE TARTRATE 0.5 MG TAB PO SCH ×2 (12:06→21:33)
[2022-12-28] MEDS: ATORVASTATIN CA 20 MG TABLET (FP) PO SCH (21:33)
[2022-12-28] MEDS: risperiDONE 1 MG TABLET PO SCH (21:33)
[2022-12-28] MEDS: TOPIRAMATE 100 MG TABLET PO SCH (21:35)
[2022-12-28] MEDS: THIAMINE HCL 100 MG TABLET (FP) PO SCH (21:35)
[2022-12-28] MEDS: ALBUTEROL SO4 HFA INHALER IH PRN (21:36)
[2022-12-28] MEDS: MELATONIN 5 MG TABLETS PO PRN (21:36)
[2022-12-29] MEDS: HYDROCHLOROTHIAZIDE 12.5 MG CAPSULE (FP) PO SCH (10:11)
[2022-12-29] MEDS: PRENATAL VITAMINS W/ FOLIC ACID TABLET (FP) PO SCH (10:11)
[2022-12-29] MEDS: LOSARTAN POTASSIUM 50 MG TABLET PO SCH (10:12)
[2022-12-29] MEDS: VARENICLINE TARTRATE 0.5 MG TAB PO SCH ×2 (10:13→21:17)
[2022-12-29] MEDS: NICOTINE 14 MG/24 HOURS TOPICAL PATCH TD SCH (10:14)
[2022-12-29] MEDS: TOPIRAMATE 25 MG TABLET PO SCH (10:15)
[2022-12-29] MEDS: UMECLIDINIUM IH SCH (10:17)
[2022-12-29] MEDS ORDERED: NICOTINE 10 MG CARTRIDGE (INHALER) IH PRN (10:54)
[2022-12-29] MEDS: METHYL SALICYLATE/MENTHOL OINT 30 GM TUBE TP PRN ×2 (14:24→21:18)
[2022-12-29] MEDS: ALBUTEROL SO4 HFA INHALER IH PRN (21:13)
[2022-12-29] MEDS: THIAMINE HCL 100 MG TABLET (FP) PO SCH (21:15)
[2022-12-29] MEDS: TOPIRAMATE 100 MG TABLET PO SCH (21:15)
[2022-12-29] MEDS: risperiDONE 1 MG TABLET PO SCH (21:15)
[2022-12-29] MEDS: ATORVASTATIN CA 20 MG TABLET (FP) PO SCH (21:15)
[2022-12-29] MEDS: MELATONIN 5 MG TABLETS PO PRN (21:17)
[2022-12-30] MEDS: MELATONIN 5 MG TABLETS PO PRN (09:25)
[2022-12-30] MEDS: LOSARTAN POTASSIUM 50 MG TABLET PO SCH (10:08)
[2022-12-30] MEDS: TOPIRAMATE 25 MG TABLET PO SCH (10:08)
[2022-12-30] MEDS: HYDROCHLOROTHIAZIDE 12.5 MG CAPSULE (FP) PO SCH (10:08)
[2022-12-30] MEDS: PRENATAL VITAMINS W/ FOLIC ACID TABLET (FP) PO SCH (10:09)
[2022-12-30] MEDS: UMECLIDINIUM IH SCH (10:09)
[2022-12-30] MEDS: VARENICLINE TARTRATE 0.5 MG TAB PO SCH ×2 (10:10→21:48)
[2022-12-30] MEDS: TOPIRAMATE 100 MG TABLET PO SCH (21:26)
[2022-12-30] MEDS: risperiDONE 1 MG TABLET PO SCH (21:26)
[2022-12-30] MEDS: ATORVASTATIN CA 20 MG TABLET (FP) PO SCH (21:26)
[2022-12-30] MEDS: ALBUTEROL SO4 HFA INHALER IH PRN (21:29)
[2022-12-30] MEDS: METHYL SALICYLATE/MENTHOL OINT 30 GM TUBE TP PRN (21:29)
[2022-12-30] MEDS: THIAMINE HCL 100 MG TABLET (FP) PO SCH (21:42)
[2022-12-31] MEDS: LOSARTAN POTASSIUM 50 MG TABLET PO SCH (10:16)
[2022-12-31] MEDS: HYDROCHLOROTHIAZIDE 12.5 MG CAPSULE (FP) PO SCH (10:16)
[2022-12-31] MEDS: TOPIRAMATE 25 MG TABLET PO SCH (10:16)
[2022-12-31] MEDS: UMECLIDINIUM IH SCH (10:18)
[2022-12-31] MEDS: VARENICLINE TARTRATE 0.5 MG TAB PO SCH ×2 (10:18→21:37)
[2022-12-31] MEDS: PRENATAL VITAMINS W/ FOLIC ACID TABLET (FP) PO SCH (10:18)
[2022-12-31] MEDS: THIAMINE HCL 100 MG TABLET (FP) PO SCH (21:37)
[2022-12-31] MEDS: ATORVASTATIN CA 20 MG TABLET (FP) PO SCH (21:37)
[2022-12-31] MEDS: ALBUTEROL SO4 HFA INHALER IH PRN (21:37)
[2022-12-31] MEDS: risperiDONE 1 MG TABLET PO SCH (21:37)
[2022-12-31] MEDS: METHYL SALICYLATE/MENTHOL OINT 30 GM TUBE TP PRN (21:38)
[2022-12-31] MEDS: TOPIRAMATE 100 MG TABLET PO SCH (21:40)
[2023-01-01 07:25] VITALS: TEMP 96.9
[2023-01-01] MEDS: LOSARTAN POTASSIUM 50 MG TABLET PO SCH (09:40)
[2023-01-01] MEDS: VARENICLINE TARTRATE 0.5 MG TAB PO SCH (09:41)
[2023-01-01] MEDS: PRENATAL VITAMINS W/ FOLIC ACID TABLET (FP) PO SCH (09:41)
[2023-01-01] MEDS: UMECLIDINIUM IH SCH (09:53)
[2023-01-01] MEDS: TOPIRAMATE 25 MG TABLET PO SCH (09:53)
[2023-01-01] MEDS: HYDROCHLOROTHIAZIDE 12.5 MG CAPSULE (FP) PO SCH (09:54)
[2023-01-01 10:20] VITALS: BP 122/62; PULSE 101
== END 2023-01-01 10:10 | disposition home or self-care (01) | DRG 895 ==
LOC: YASAS 14:53 → Y5N 14:55
PROVIDERS: ADMIT Allergy & Immunology; ATTEND Psychiatry & Neurology Pain Medicine
PROC: HZ42ZZZ Group Counseling for Substance Abuse Treatment, Cognitive-Behavioral (ICD-10-PCS; principal; 2022-12-18)
DX: F10.20 Alcohol dependence, uncomplicated (principal); F14.20 Cocaine dependence, uncomplicated; F17.210 Nicotine dependence, cigarettes, uncomplicated; E78.1 Pure hyperglyceridemia; I10 Essential (primary) hypertension; J44.9 Chronic obstructive pulmonary disease, unspecified; M17.11 Unilateral primary osteoarthritis, right knee; M16.11 Unilateral primary osteoarthritis, right hip; Z99.89 Dependence on other enabling machines and devices
CPT/HCPCS: 82962; 90677

== ENCOUNTER 2023-05-02 10:33 | Inpatient (IN) | payer OTHER ==
[2023-05-02 11:02] VITALS: BMI 43.5
[2023-05-02] MEDS ORDERED: LOPERAMIDE HCL 2 MG CAPSULE PO PRN (12:48)
[2023-05-02] MEDS ORDERED: MAG HYDROX/AL HYDROX/SIMETH 30 ML UNIT-DOSE CUP PO PRN (12:48)
[2023-05-02] MEDS ORDERED: ONDANSETRON *ODT* 4 MG TABLET SL PRN (12:48)
[2023-05-02] MEDS ORDERED: DICYCLOMINE HCL 10 MG CAPSULE PO PRN (12:48)
[2023-05-02] MEDS ORDERED: guaiFENesin 600 MG TABLET.ER (FP) PO PRN (12:48)
[2023-05-02] MEDS ORDERED: MAGNESIUM HYDROX 2400MG/30ML ORAL SUSPENSION 30 ML CUP PO PRN (12:48)
[2023-05-02] MEDS ORDERED: NALOXONE HCL (KLOXXADO) 8 MG SPRAY NS PRN (12:48)
[2023-05-02] MEDS ORDERED: BISMUTH SUBSALICYLATE 524 MG/30 ML PO PRN (12:48)
[2023-05-02] MEDS ORDERED: IBUPROFEN 600 MG TABLET (FP) PO PRN (12:48)
[2023-05-02] MEDS ORDERED: IBUPROFEN 400 MG TABLET (FP) PO PRN (12:48)
[2023-05-02] MEDS ORDERED: POLYETHYLENE GLYCOL (HEALTHYLAX) 3350 17 GM PACKET PO PRN (12:48)
[2023-05-02] MEDS ORDERED: chlordiazePOXIDE HCL 25 MG CAPSULE PO PRN (12:48)
[2023-05-02] MEDS ORDERED: BENZONATATE 200 MG CAPSULE PO PRN (12:48)
[2023-05-02] MEDS ORDERED: NALOXONE HCL 0.4 MG/ML VIAL IM PRN (12:48)
[2023-05-02] MEDS ORDERED: ACETAMINOPHEN 325 MG TABLET (FP) PO PRN (12:48)
[2023-05-02] MEDS ORDERED: BENZOCAINE/MENTHOL (CHLORASEPTIC ) LOZENGE MM PRN (12:48)
[2023-05-02] MEDS ORDERED: hydrOXYzine PAMOATE 25 MG CAPSULE (FP) PO PRN (12:48)
[2023-05-02] MEDS ORDERED: PRENATAL VITAMINS W/ FOLIC ACID TABLET (FP) PO ONE (13:37)
[2023-05-02] MEDS ORDERED: NICOTINE 7 MG/24 HOURS TOPICAL PATCH TD ONE (13:37)
[2023-05-02] MEDS: NICOTINE 7 MG/24 HOURS TOPICAL PATCH TD SCH (13:41)
[2023-05-02] MEDS: PRENATAL VITAMINS W/ FOLIC ACID TABLET (FP) PO SCH (13:41)
[2023-05-02] MEDS: chlordiazePOXIDE HCL 25 MG CAPSULE PO SCH ×2 (17:13→22:19)
[2023-05-02 17:15] LABS: HEMATOCRIT 42.6 % (32.4-45.2); HEMOGLOBIN 13.3 GM/dL (10.7-15.3); MCH 29.9 pg (25.7-33.7); MCHC 31.2 g/dl (32.0-36.0); MEAN CELL VOLUME 95.8 fl (80-96); MEAN PLT VOLUME 8.1 fl (7.5-11.1); PLATELET COUNT 216 10^3/uL (134-434); RBC 4.44 M/mm3 (3.60-5.2); WHITE BLOOD COUNT 5.7 K/mm3 (4.0-10.0)
[2023-05-02 17:19] LABS: POTASSIUM 3.9 mmol/L (3.5-5.1)
[2023-05-02 17:25] LABS: ALBUMIN 3.2 g/dl (3.4-5.0); CALCIUM 8.8 mg/dL (8.5-10.1)
[2023-05-02 17:26] LABS: BLOOD UREA NITROGEN 8.9 mg/dL (7-18)
[2023-05-02 17:28] LABS: CREATININE 0.8 mg/dL (0.55-1.3)
[2023-05-02 17:30] LABS: BILIRUBIN,TOTAL 0.2 mg/dL (0.2-1); TOT PROT 6.9 g/dl (6.4-8.2)
[2023-05-02] MEDS: MELATONIN 5 MG TABLETS PO SCH (22:18)
[2023-05-02] MEDS: THIAMINE HCL 100 MG TABLET (FP) PO SCH (22:19)
[2023-05-03] MEDS: chlordiazePOXIDE HCL 25 MG CAPSULE PO SCH ×4 (05:22→22:27)
[2023-05-03] MEDS ORDERED: PNEUMOC 20-VAL CONJ-DIP CRM/PF 0.5 ML SYRINGE IM ONE ×2 (10:00)
[2023-05-03] MEDS: NICOTINE 7 MG/24 HOURS TOPICAL PATCH TD SCH (10:38)
[2023-05-03] MEDS: PRENATAL VITAMINS W/ FOLIC ACID TABLET (FP) PO SCH (10:38)
[2023-05-03] MEDS ORDERED: cloNIDine HCL 0.1 MG TABLET PO PRN (17:57)
[2023-05-03] MEDS: HYDROCHLOROTHIAZIDE 12.5 MG CAPSULE (FP) PO SCH (18:28)
[2023-05-03] MEDS: LOSARTAN POTASSIUM 50 MG TABLET PO SCH (18:28)
[2023-05-03] MEDS: ATORVASTATIN CA 20 MG TABLET (FP) PO SCH (22:27)
[2023-05-03] MEDS: MELATONIN 5 MG TABLETS PO SCH (22:27)
[2023-05-03] MEDS: risperiDONE 1 MG TABLET PO SCH (22:27)
[2023-05-03] MEDS: THIAMINE HCL 100 MG TABLET (FP) PO SCH (22:27)
[2023-05-04] MEDS: chlordiazePOXIDE HCL 25 MG CAPSULE PO SCH ×4 (05:50→22:05)
[2023-05-04] MEDS: TOPIRAMATE 25 MG TABLET PO SCH (10:28)
[2023-05-04] MEDS: NICOTINE 7 MG/24 HOURS TOPICAL PATCH TD SCH (10:29)
[2023-05-04] MEDS: PRENATAL VITAMINS W/ FOLIC ACID TABLET (FP) PO SCH (10:29)
[2023-05-04] MEDS: HYDROCHLOROTHIAZIDE 12.5 MG CAPSULE (FP) PO SCH (10:30)
[2023-05-04] MEDS: LOSARTAN POTASSIUM 50 MG TABLET PO SCH (10:30)
[2023-05-04] MEDS: TIOTROPIUM BROMIDE 2.5 MCG (SPIRIVA) RESPIMAT INHALER IH SCH (10:31)
[2023-05-04] MEDS: ATORVASTATIN CA 20 MG TABLET (FP) PO SCH (22:04)
[2023-05-04] MEDS: risperiDONE 1 MG TABLET PO SCH (22:04)
[2023-05-04] MEDS: MELATONIN 5 MG TABLETS PO SCH (22:04)
[2023-05-04] MEDS: THIAMINE HCL 100 MG TABLET (FP) PO SCH (22:04)
[2023-05-05] MEDS ORDERED: chlordiazePOXIDE HCL 10 MG CAPSULE PO PRN
[2023-05-05] MEDS: chlordiazePOXIDE HCL 10 MG CAPSULE PO SCH ×4 (05:50→22:02)
[2023-05-05] MEDS: LOSARTAN POTASSIUM 50 MG TABLET PO SCH (10:35)
[2023-05-05] MEDS: TIOTROPIUM BROMIDE 2.5 MCG (SPIRIVA) RESPIMAT INHALER IH SCH (10:35)
[2023-05-05] MEDS: TOPIRAMATE 25 MG TABLET PO SCH (10:36)
[2023-05-05] MEDS: NICOTINE 7 MG/24 HOURS TOPICAL PATCH TD SCH ×2 (10:36→10:39)
[2023-05-05] MEDS: HYDROCHLOROTHIAZIDE 12.5 MG CAPSULE (FP) PO SCH (10:36)
[2023-05-05] MEDS: PRENATAL VITAMINS W/ FOLIC ACID TABLET (FP) PO SCH (10:36)
[2023-05-05] MEDS: ALBUTEROL SO4 HFA INHALER IH PRN ×2 (10:39→22:01)
[2023-05-05] MEDS: MELATONIN 5 MG TABLETS PO SCH (22:02)
[2023-05-05] MEDS: ATORVASTATIN CA 20 MG TABLET (FP) PO SCH (22:02)
[2023-05-05] MEDS: THIAMINE HCL 100 MG TABLET (FP) PO SCH (22:02)
[2023-05-05] MEDS: risperiDONE 1 MG TABLET PO SCH (22:02)
[2023-05-05] MEDS: METHOCARBAMOL 500 MG TABLET PO PRN (22:03)
[2023-05-06] MEDS: chlordiazePOXIDE HCL 10 MG CAPSULE PO SCH ×2 (05:50→17:58)
[2023-05-06] MEDS: METHOCARBAMOL 500 MG TABLET PO PRN (06:01)
[2023-05-06] MEDS: ALBUTEROL SO4 HFA INHALER IH PRN (10:15)
[2023-05-06] MEDS: LOSARTAN POTASSIUM 50 MG TABLET PO SCH (10:16)
[2023-05-06] MEDS: TIOTROPIUM BROMIDE 2.5 MCG (SPIRIVA) RESPIMAT INHALER IH SCH (10:16)
[2023-05-06] MEDS: PRENATAL VITAMINS W/ FOLIC ACID TABLET (FP) PO SCH (10:16)
[2023-05-06] MEDS: HYDROCHLOROTHIAZIDE 12.5 MG CAPSULE (FP) PO SCH (10:16)
[2023-05-06] MEDS: NICOTINE 7 MG/24 HOURS TOPICAL PATCH TD SCH (10:16)
[2023-05-06] MEDS: TOPIRAMATE 25 MG TABLET PO SCH (10:17)
[2023-05-06] MEDS: ATORVASTATIN CA 20 MG TABLET (FP) PO SCH (22:11)
[2023-05-06] MEDS: THIAMINE HCL 100 MG TABLET (FP) PO SCH (22:11)
[2023-05-06] MEDS: risperiDONE 1 MG TABLET PO SCH (22:11)
[2023-05-06] MEDS: MELATONIN 5 MG TABLETS PO SCH (22:11)
[2023-05-07] MEDS ORDERED: chlordiazePOXIDE HCL 10 MG CAPSULE PO ONE (05:00)
[2023-05-07] MEDS: METHOCARBAMOL 500 MG TABLET PO PRN (05:33)
[2023-05-07 06:21] VITALS: RESP 18
[2023-05-07] MEDS: HYDROCHLOROTHIAZIDE 12.5 MG CAPSULE (FP) PO SCH (09:41)
[2023-05-07] MEDS: TOPIRAMATE 25 MG TABLET PO SCH (09:41)
[2023-05-07] MEDS: PRENATAL VITAMINS W/ FOLIC ACID TABLET (FP) PO SCH (09:41)
[2023-05-07] MEDS: LOSARTAN POTASSIUM 50 MG TABLET PO SCH (09:43)
[2023-05-07] MEDS: NICOTINE 7 MG/24 HOURS TOPICAL PATCH TD SCH (09:43)
[2023-05-07] MEDS: TIOTROPIUM BROMIDE 2.5 MCG (SPIRIVA) RESPIMAT INHALER IH SCH (09:43)
[2023-05-07 10:05] VITALS: BP 111/67; PULSE 82
[2023-05-07 11:29] VITALS: TEMP 97.7
== END 2023-05-07 11:22 | disposition home or self-care (01) | DRG 897 ==
LOC: YASAS 10:33 → Y3N 13:23
PROVIDERS: ADMIT Allergy & Immunology; ATTEND Surgery
PROC: HZ2ZZZZ Detoxification Services for Substance Abuse Treatment (ICD-10-PCS; principal; 2023-05-02)
DX: F10.230 Alcohol dependence with withdrawal, uncomplicated (principal); F14.20 Cocaine dependence, uncomplicated; F12.20 Cannabis dependence, uncomplicated; F17.210 Nicotine dependence, cigarettes, uncomplicated; F25.1 Schizoaffective disorder, depressive type; F31.9 Bipolar disorder, unspecified; I10 Essential (primary) hypertension; J43.0 Unilateral pulmonary emphysema [MacLeod's syndrome]; M17.11 Unilateral primary osteoarthritis, right knee; M16.11 Unilateral primary osteoarthritis, right hip; R76.8 Other specified abnormal immunological findings in serum; Z99.89 Dependence on other enabling machines and devices
CPT/HCPCS: 36415; 80053; 85027; 86593; 86780; 87635; 87811

== ENCOUNTER 2023-10-18 09:39 | Inpatient (IN) | payer OTHER ==
[2023-10-18 10:11] VITALS: BMI 40.3
[2023-10-18] MEDS ORDERED: NALOXONE HCL 0.4 MG/ML VIAL IM PRN (11:18)
[2023-10-18] MEDS ORDERED: BENZONATATE 200 MG CAPSULE PO PRN (11:18)
[2023-10-18] MEDS ORDERED: MAGNESIUM HYDROX 2400MG/30ML ORAL SUSPENSION 30 ML CUP PO PRN (11:18)
[2023-10-18] MEDS ORDERED: POLYETHYLENE GLYCOL (HEALTHYLAX) 3350 17 GM PACKET PO PRN (11:18)
[2023-10-18] MEDS ORDERED: METHOCARBAMOL 500 MG TABLET PO PRN (11:18)
[2023-10-18] MEDS ORDERED: NICOTINE POLACRILEX 2 MG GUM BUC PRN (11:18)
[2023-10-18] MEDS ORDERED: NALOXONE HCL (KLOXXADO) 8 MG SPRAY NS PRN (11:18)
[2023-10-18] MEDS ORDERED: DICYCLOMINE HCL 10 MG CAPSULE PO PRN (11:18)
[2023-10-18] MEDS ORDERED: BENZOCAINE/MENTHOL (CHLORASEPTIC ) LOZENGE MM PRN (11:18)
[2023-10-18] MEDS ORDERED: LOPERAMIDE HCL 2 MG CAPSULE PO PRN (11:18)
[2023-10-18] MEDS ORDERED: guaiFENesin 600 MG TABLET.ER (FP) PO PRN (11:18)
[2023-10-18] MEDS ORDERED: ACETAMINOPHEN 325 MG TABLET (FP) PO PRN (11:18)
[2023-10-18] MEDS ORDERED: ONDANSETRON *ODT* 4 MG TABLET SL PRN (11:18)
[2023-10-18] MEDS ORDERED: BISMUTH SUBSALICYLATE 262 MG/15 ML BTL PO PRN (11:18)
[2023-10-18 15:11] LABS: HEMATOCRIT 40.7 % (32.4-45.2); HEMOGLOBIN 13.3 GM/dL (10.7-15.3); MCH 30.6 pg (25.7-33.7); MCHC 32.7 g/dl (32.0-36.0); MEAN CELL VOLUME 93.5 fl (80-96); MEAN PLT VOLUME 7.3 fl (7.5-11.1); PLATELET COUNT 234 10^3/uL (134-434); RBC 4.36 M/mm3 (3.60-5.2); RDW 16.4 % (11.6-15.6); WHITE BLOOD COUNT 5.4 K/mm3 (4.0-10.0)
[2023-10-18 15:18] LABS: BLOOD UREA NITROGEN 9.7 mg/dL (7-18)
[2023-10-18 15:20] LABS: ALBUMIN 3.2 g/dl (3.4-5.0)
[2023-10-18 15:23] LABS: CREATININE 0.8 mg/dL (0.55-1.3)
[2023-10-18 15:24] LABS: BILIRUBIN,TOTAL 0.4 mg/dL (0.2-1); TOT PROT 6.9 g/dl (6.4-8.2)
[2023-10-18] MEDS: THIAMINE HCL 100 MG TABLET (FP) PO SCH (22:25)
[2023-10-18] MEDS: hydrOXYzine PAMOATE 25 MG CAPSULE (FP) PO PRN (22:25)
[2023-10-18] MEDS: MELATONIN 5 MG TABLETS PO SCH (22:25)
[2023-10-19] MEDS: NICOTINE 14 MG/24 HOURS TOPICAL PATCH TD SCH (10:48)
[2023-10-19] MEDS: TIOTROPIUM BROMIDE 2.5 MCG (SPIRIVA) RESPIMAT INHALER IH SCH (10:50)
[2023-10-19] MEDS: HYDROCHLOROTHIAZIDE 12.5 MG CAPSULE (FP) PO SCH (10:51)
[2023-10-19] MEDS: PRENATAL VITAMINS W/ FOLIC ACID TABLET (FP) PO SCH (10:51)
[2023-10-19] MEDS: LOSARTAN POTASSIUM 50 MG TABLET PO SCH (10:51)
[2023-10-19] MEDS ORDERED: LORazepam 1 MG TABLET PO PRN ×2 (12:39→12:41)
[2023-10-19] MEDS: LORazepam 1 MG TABLET PO SCH (14:31)
[2023-10-19] MEDS: ALBUTEROL SO4 HFA INHALER IH PRN (17:25)
[2023-10-19] MEDS: ATORVASTATIN CA 20 MG TABLET (FP) PO SCH (22:14)
[2023-10-20] MEDS ORDERED: LORazepam 0.5 MG TABLET PO PRN
[2023-10-20] MEDS: LORazepam 0.5 MG TABLET PO SCH (05:42)
[2023-10-20 10:04] VITALS: RESP 18
[2023-10-21] MEDS: LORazepam 0.5 MG TABLET PO ONE (05:26)
[2023-10-21] MEDS: IBUPROFEN 400 MG TABLET (FP) PO PRN (18:54)
[2023-10-21] MEDS: MAG HYDROX/AL HYDROX/SIMETH 30 ML UNIT-DOSE CUP PO PRN (18:54)
[2023-10-21] MEDS: risperiDONE 2 MG TABLET PO SCH (22:18)
[2023-10-21] MEDS: TOPIRAMATE 100 MG TABLET PO SCH (22:19)
[2023-10-22] MEDS ORDERED: LORazepam 0.5 MG TABLET PO PRN ×2
[2023-10-22] MEDS: IBUPROFEN 600 MG TABLET (FP) PO PRN (05:33)
[2023-10-22] MEDS: TOPIRAMATE 25 MG TABLET PO SCH (12:11)
[2023-10-22 13:19] VITALS: BP 125/59; PULSE 90; TEMP 97.5
[2023-10-23] MEDS ORDERED: LORazepam 0.5 MG TABLET PO ONE (05:00)
== END 2023-10-22 16:30 | disposition home or self-care (01) | DRG 897 ==
LOC: YASAS 09:39 → Y6N 12:00
PROVIDERS: ADMIT Allergy & Immunology; ATTEND Surgery
PROC: HZ2ZZZZ Detoxification Services for Substance Abuse Treatment (ICD-10-PCS; principal; 2023-10-18)
DX: F10.230 Alcohol dependence with withdrawal, uncomplicated (principal); F14.20 Cocaine dependence, uncomplicated; F12.20 Cannabis dependence, uncomplicated; F17.210 Nicotine dependence, cigarettes, uncomplicated; F25.0 Schizoaffective disorder, bipolar type; I10 Essential (primary) hypertension; E78.5 Hyperlipidemia, unspecified; J43.0 Unilateral pulmonary emphysema [MacLeod's syndrome]; M17.11 Unilateral primary osteoarthritis, right knee; Z99.89 Dependence on other enabling machines and devices; Z86.19 Personal history of other infectious and parasitic diseases
CPT/HCPCS: 36415; 80053; 80307; 85027; 86593; 86780; 87635

== ENCOUNTER 2024-05-15 10:33 | Inpatient (IN) | payer OTHER ==
[2024-05-15 11:03] VITALS: BMI 43.2
[2024-05-15] MEDS ORDERED: BISMUTH SUBSALICYLATE 524 MG/30 ML PO PRN (12:53)
[2024-05-15] MEDS ORDERED: BENZOCAINE/MENTHOL (CHLORASEPTIC ) LOZENGE MM PRN (12:53)
[2024-05-15] MEDS ORDERED: DICYCLOMINE HCL 10 MG CAPSULE PO PRN (12:53)
[2024-05-15] MEDS ORDERED: MAGNESIUM HYDROX 2400MG/30ML ORAL SUSPENSION 30 ML CUP PO PRN (12:53)
[2024-05-15] MEDS ORDERED: NALOXONE HCL 0.4 MG/ML VIAL IM PRN (12:53)
[2024-05-15] MEDS ORDERED: guaiFENesin 600 MG TABLET.ER (FP) PO PRN (12:53)
[2024-05-15] MEDS ORDERED: POLYETHYLENE GLYCOL (HEALTHYLAX) 3350 17 GM PACKET PO PRN (12:53)
[2024-05-15] MEDS ORDERED: hydrOXYzine PAMOATE 25 MG CAPSULE (FP) PO PRN (12:53)
[2024-05-15] MEDS ORDERED: ACETAMINOPHEN 325 MG TABLET (FP) PO PRN (12:53)
[2024-05-15] MEDS ORDERED: LOPERAMIDE HCL 2 MG CAPSULE PO PRN (12:53)
[2024-05-15] MEDS ORDERED: IBUPROFEN 400 MG TABLET (FP) PO PRN (12:53)
[2024-05-15] MEDS ORDERED: BENZONATATE 200 MG CAPSULE PO PRN (12:53)
[2024-05-15] MEDS ORDERED: ONDANSETRON *ODT* 4 MG TABLET SL PRN (12:53)
[2024-05-15] MEDS ORDERED: NALOXONE (NARCAN) HCL 4 MG/0.1 ML SPRAY NS PRN (12:53)
[2024-05-15] MEDS ORDERED: PRENATAL VITAMINS W/ FOLIC ACID TABLET (FP) PO ONE (13:15)
[2024-05-15] MEDS ORDERED: NICOTINE 7 MG/24 HOURS TOPICAL PATCH TD ONE (13:15)
[2024-05-15] MEDS: NICOTINE 7 MG/24 HOURS TOPICAL PATCH TD SCH (13:18)
[2024-05-15] MEDS: PRENATAL VITAMINS W/ FOLIC ACID TABLET (FP) PO SCH (13:18)
[2024-05-15] MEDS: HYDROCHLOROTHIAZIDE 12.5 MG CAPSULE (FP) PO SCH (13:37)
[2024-05-15] MEDS: LOSARTAN POTASSIUM 50 MG TABLET PO SCH (13:37)
[2024-05-15] MEDS ORDERED: HYDROCHLOROTHIAZIDE 12.5 MG CAPSULE (FP) PO SCH (14:00)
[2024-05-15] MEDS: BACLOFEN 10 MG TABLET (FP) PO SCH (15:30)
[2024-05-15] MEDS: ATORVASTATIN CA 20 MG TABLET (FP) PO SCH (22:26)
[2024-05-15] MEDS: THIAMINE 100 MG TABLET PO SCH (22:27)
[2024-05-15] MEDS: MELATONIN 5 MG TABLETS PO SCH (22:27)
[2024-05-16] MEDS ORDERED: BACLOFEN 10 MG TABLET (FP) PO SCH (10:00)
[2024-05-16] MEDS ORDERED: HYDROCHLOROTHIAZIDE 12.5 MG CAPSULE (FP) PO SCH (10:00)
[2024-05-16] MEDS ORDERED: LOSARTAN POTASSIUM 50 MG TABLET PO SCH (10:00)
[2024-05-16] MEDS ORDERED: LORazepam 1 MG TABLET PO PRN (10:09)
[2024-05-16 10:25] LABS: HEMATOCRIT 40.9 % (32.4-45.2); HEMOGLOBIN 13.2 GM/dL (10.7-15.3); MCH 29.9 pg (25.7-33.7); MCHC 32.3 g/dl (32.0-36.0); MEAN CELL VOLUME 92.5 fl (80-96); MEAN PLT VOLUME 7.3 fl (7.5-11.1); PLATELET COUNT 221 10^3/uL (134-434); RBC 4.42 M/mm3 (3.60-5.2); WHITE BLOOD COUNT 4.9 K/mm3 (4.0-10.0)
[2024-05-16] MEDS: LORazepam 2 MG TABLET PO SCH (10:36)
[2024-05-16 12:48] LABS: POTASSIUM 4.2 mmol/L (3.5-5.1)
[2024-05-16 12:49] LABS: CALCIUM 9.3 mg/dL (8.5-10.1)
[2024-05-16 12:50] LABS: ALBUMIN 3.4 g/dl (3.4-5.0); BLOOD UREA NITROGEN 9.9 mg/dL (7-18)
[2024-05-16 12:53] LABS: CREATININE 0.8 mg/dL (0.55-1.3)
[2024-05-16 12:55] LABS: BILIRUBIN,TOTAL 0.4 mg/dL (0.2-1)
[2024-05-16] MEDS: MAG HYDROX/AL HYDROX/SIMETH 30 ML UNIT-DOSE CUP PO PRN (16:46)
[2024-05-16] MEDS: IBUPROFEN 600 MG TABLET (FP) PO PRN (16:48)
[2024-05-17] MEDS ORDERED: LACTULOSE 20 GM/30 ML UDC (FOR ORAL USE ONLY) PO PRN (14:59)
[2024-05-18] MEDS: LORazepam 1 MG TABLET PO SCH (05:06)
[2024-05-18] MEDS: BACLOFEN 10 MG TABLET (FP) PO ONE (18:21)
[2024-05-19] MEDS ORDERED: LORazepam 0.5 MG TABLET PO PRN
[2024-05-19] MEDS: LORazepam 0.5 MG TABLET PO SCH (05:47)
[2024-05-19] MEDS: ALBUTEROL SO4 HFA INHALER IH PRN (05:52)
[2024-05-19 10:11] VITALS: TEMP 98.6
[2024-05-19] MEDS: NALTREXONE HCL 50 MG TABLET PO SCH (15:40)
[2024-05-19 16:43] VITALS: RESP 18
[2024-05-19] MEDS ORDERED: ALBUTEROL SO4 2.5/IPRATROPIUM 0.5 INH SOL 3 ML VIAL.NEB. NEB ONE (17:15)
[2024-05-19] MEDS: ALBUTEROL SO4 2.5/IPRATROPIUM 0.5 INH SOL 3 ML VIAL.NEB. NEB ONE (17:49)
[2024-05-19 17:56] VITALS: BP 115/64; PULSE 72
[2024-05-19] MEDS ORDERED: LACTULOSE 20 GM/30 ML UDC (FOR ORAL USE ONLY) PO SCH (22:00)
[2024-05-20] MEDS ORDERED: LORazepam 0.5 MG TABLET PO ONE (05:00)
== END 2024-05-20 02:10 | disposition short-term general hospital (02) | DRG 897 ==
LOC: YASAS 10:33 → Y6N 13:04
PROVIDERS: ADMIT Allergy & Immunology; ATTEND Surgery
PROC: HZ2ZZZZ Detoxification Services for Substance Abuse Treatment (ICD-10-PCS; principal; 2024-05-15)
DX: F10.230 Alcohol dependence with withdrawal, uncomplicated (principal); F14.20 Cocaine dependence, uncomplicated; J44.1 Chronic obstructive pulmonary disease with (acute) exacerbation; F12.20 Cannabis dependence, uncomplicated; F17.213 Nicotine dependence, cigarettes, with withdrawal; E78.5 Hyperlipidemia, unspecified; I10 Essential (primary) hypertension; R06.02 Shortness of breath; M17.0 Bilateral primary osteoarthritis of knee; M19.041 Primary osteoarthritis, right hand; M19.042 Primary osteoarthritis, left hand; Z99.89 Dependence on other enabling machines and devices; Z86.19 Personal history of other infectious and parasitic diseases
CPT/HCPCS: 36415; 80053; 80305; 80307; 82140; 85027; 94640; J0475

== ENCOUNTER 2024-05-19 18:35 | Observation (INO) | payer OTHER ==
[2024-05-19] MEDS ORDERED: ALBUTEROL SO4 2.5/IPRATROPIUM 0.5 INH SOL 3 ML VIAL.NEB. NEB ONE (20:48)
[2024-05-19] MEDS: ALBUTEROL SO4 2.5/IPRATROPIUM 0.5 INH SOL 3 ML VIAL.NEB. NEB SCH (21:01)
[2024-05-19] MEDS ORDERED: methylPREDNISolone NA SUCC 125 MG/2 ML VIAL ONE (21:02)
[2024-05-19] MEDS: methylPREDNISolone NA SUCC 125 MG/2 ML VIAL IVPB ONE (21:02)
[2024-05-19 21:13] LABS: BASO % 0.6 % (0-2.0); EOS % 0.1 % (0-4.5); HEMATOCRIT 44.6 % (32.4-45.2); HEMOGLOBIN 14.5 GM/dL (10.7-15.3); LYMPH % 11.7 % (8-40); MCHC 32.6 g/dl (32.0-36.0); MEAN CELL VOLUME 92.1 fl (80-96); MEAN PLT VOLUME 6.7 fl (7.5-11.1); MONO % 5.2 % (3.8-10.2); NEUT % 82.4 % (42.8-82.8); PLATELET COUNT 233 10^3/uL (134-434); RBC 4.84 M/mm3 (3.60-5.2); WHITE BLOOD COUNT 9.9 K/mm3 (4.0-10.0)
[2024-05-19 21:36] LABS: ALBUMIN 3.8 g/dl (3.4-5.0); BLOOD UREA NITROGEN 22.6 mg/dL (7-18); CALCIUM 9.6 mg/dL (8.5-10.1)
[2024-05-19 21:39] LABS: CREATININE 1.2 mg/dL (0.55-1.3)
[2024-05-19 21:41] LABS: BILIRUBIN,TOTAL 0.9 mg/dL (0.2-1); TOT PROT 7.9 g/dl (6.4-8.2)
[2024-05-19 21:45] LABS: N-TERMINAL BNP 10.1 pg/ml (5-125)
[2024-05-19] MEDS ORDERED: MIDAZOLAM HCL 5 MG/1 ML Single Dose Vial ONE (21:55)
[2024-05-19] MEDS ORDERED: diazePAM CARPU-JECT 10 MG/2 ML DISP.SYRIN ONE (21:57)
[2024-05-19] MEDS: MIDAZOLAM HCL 5 MG/1 ML Single Dose Vial IVPUSH ONE (22:12)
[2024-05-19] MEDS: diazePAM CARPU-JECT 10 MG/2 ML DISP.SYRIN IVPUSH ONE (22:16)
[2024-05-19] MEDS ORDERED: MAGNESIUM SULFATE IN WATER 2 GM/50 ML IVPB IVPB ONE (22:45)
[2024-05-19] MEDS: MAGNESIUM SULFATE IN WATER 2 GM/50 ML IVPB IVPB ONE (23:19)
[2024-05-20] MEDS: LORazepam 0.5 MG TABLET PO ONE (00:04)
[2024-05-20] MEDS: SODIUM CHLORIDE 0.9% 1000 ML INFUS.BAG IV ONE (00:29)
[2024-05-20 01:38] VITALS: BMI 43.5
[2024-05-20] MEDS: ACETAMINOPHEN 1000 MG/100 ML BAG IVPB ONE (03:04)
[2024-05-20] MEDS: CYCLOBENZAPRINE HCL 5 MG TABLET PO ONE (03:04)
[2024-05-20] MEDS: HEPARIN NA (PORCINE) 5,000 UNITS/ML 1ML VIAL SQ SCH (06:09)
[2024-05-20] MEDS: ATORVASTATIN CA 20 MG TABLET (FP) PO ONE (06:17)
[2024-05-20] MEDS: ALBUTEROL SO4 2.5/IPRATROPIUM 0.5 INH SOL 3 ML VIAL.NEB. NEB SCH (07:40)
[2024-05-20] MEDS: LORazepam 0.5 MG TABLET PO PRN (09:32)
[2024-05-20] MEDS: THIAMINE 100 MG TABLET PO SCH (09:35)
[2024-05-20] MEDS: AZITHROMYCIN 250 MG TABLET PO SCH (09:35)
[2024-05-20] MEDS: predniSONE 20 MG TABLET (UD) PO SCH (09:35)
[2024-05-20] MEDS: FOLIC ACID 1 MG TABLET (FP) PO SCH (09:35)
[2024-05-20 10:02] LABS: HEMATOCRIT 43.1 % (32.4-45.2); HEMOGLOBIN 13.8 GM/dL (10.7-15.3); MCH 29.9 pg (25.7-33.7); MCHC 31.9 g/dl (32.0-36.0); MEAN CELL VOLUME 93.6 fl (80-96); MEAN PLT VOLUME 6.8 fl (7.5-11.1); PLATELET COUNT 232 10^3/uL (134-434); RDW 16.6 % (11.6-15.6); WHITE BLOOD COUNT 10.8 K/mm3 (4.0-10.0)
[2024-05-20 10:19] LABS: POTASSIUM 3.9 mmol/L (3.5-5.1)
[2024-05-20 10:24] LABS: ALBUMIN 3.5 g/dl (3.4-5.0); BLOOD UREA NITROGEN 17.5 mg/dL (7-18); CALCIUM 9.5 mg/dL (8.5-10.1); MAGNESIUM 2.6 mg/dL (1.8-2.4)
[2024-05-20 10:27] LABS: PHOSPHOROUS 3.9 mg/dL (2.5-4.9)
[2024-05-20 10:28] LABS: BILIRUBIN,TOTAL 1.2 mg/dL (0.2-1)
[2024-05-20 10:30] LABS: TOT PROT 7.5 g/dl (6.4-8.2)
[2024-05-20 10:54] LABS: EPI CELLS >36 /uL (0-25.1); HYALINE CASTS 2 /uL (0-3.1); PH,URINE 5.5 (5.0-8.0); URINE APPEARANCE CLEAR; URINE BACTERIA 576 /uL (0-1359); URINE BILIRUBIN NEGATIVE (NEGATIVE); URINE COLOR YELLOW; URINE GLUCOSE (UA) NEGATIVE (NEGATIVE); URINE KETONE NEGATIVE (NEGATIVE); URINE LEUK ESTERASE NEGATIVE (NEGATIVE); URINE NITRITE NEGATIVE (NEGATIVE); URINE PROTEIN TRACE (NEGATIVE); URINE RBC 10 /uL (0-23.9); URINE UROBILINOGEN 0.2 mg/dL (0.2-1.0); URINE WBC 16 /uL (0-25.8)
[2024-05-20] MEDS ORDERED: ONDANSETRON *ODT* 4 MG TABLET SL PRN (10:57)
[2024-05-20] MEDS: BUDESONIDE/FORMETEROL FUMARATE 160/4.5 mcg INHALER IH SCH (11:56)
[2024-05-20] MEDS: CYCLOBENZAPRINE HCL 5 MG TABLET PO PRN (14:26)
[2024-05-20] MEDS: MELATONIN 5 MG TABLETS PO ONE (21:45)
[2024-05-21 01:44] VITALS: RESP 20
[2024-05-21 05:55] VITALS: BP 102/62; PULSE 92; TEMP 99.3
[2024-05-21] MEDS: CYCLOBENZAPRINE HCL 5 MG TABLET PO PRN (11:05)
[2024-05-21 11:42] LABS: POTASSIUM 3.4 mmol/L (3.5-5.1)
[2024-05-21 11:54] LABS: CALCIUM 9.6 mg/dL (8.5-10.1)
[2024-05-21 11:55] LABS: BLOOD UREA NITROGEN 17.4 mg/dL (7-18)
[2024-05-21 11:58] LABS: CREATININE 0.9 mg/dL (0.55-1.3)
[2024-05-21] MEDS: POTASSIUM CHLORIDE ORAL LIQUID 20 MEQ/15 ML PO ONE (13:28)
[2024-05-21] MEDS ORDERED: CYCLOBENZAPRINE HCL 5 MG TABLET PO PRN (14:44)
[2024-05-22] MEDS ORDERED: CYCLOBENZAPRINE HCL 5 MG TABLET PO PRN (10:00)
== END 2024-05-21 16:26 | disposition other institution (70) ==
LOC: JER 18:35 → JERBED 22:22 → J6W 05-20 01:13
PROVIDERS: ADMIT Student in an Organized Health Care Education/Training Program; ATTEND Psychiatry & Neurology Pain Medicine
PROC: 3E0333Z Introduction of Anti-inflammatory into Peripheral Vein, Percutaneous Approach (ICD-10-PCS; principal; 2024-05-19)
PROC: 3E033GC Introduction of Other Therapeutic Substance into Peripheral Vein, Percutaneous Approach (ICD-10-PCS; 2024-05-19)
PROC: 3E0337Z Introduction of Electrolytic and Water Balance Substance into Peripheral Vein, Percutaneous Approach (ICD-10-PCS; 2024-05-19)
PROC: 3E033NZ Introduction of Analgesics, Hypnotics, Sedatives into Peripheral Vein, Percutaneous Approach (ICD-10-PCS; 2024-05-19)
DX: J44.1 Chronic obstructive pulmonary disease with (acute) exacerbation (principal); N17.9 Acute kidney failure, unspecified; F10.99 Alcohol use, unspecified with unspecified alcohol-induced disorder; F12.90 Cannabis use, unspecified, uncomplicated; F14.90 Cocaine use, unspecified, uncomplicated; E87.1 Hypo-osmolality and hyponatremia; I10 Essential (primary) hypertension; E78.5 Hyperlipidemia, unspecified; F31.9 Bipolar disorder, unspecified; F17.200 Nicotine dependence, unspecified, uncomplicated
CPT/HCPCS: 0241U-QW; 36415; 71045-TC-FY; 80048; 80053; 81003; 82570; 82728; 83540; 83550; 83735; 83880; 84100; 84300; 84466; 84484; 85025; 85027; 86850; 86900; 86901; 93005; 93010; 94640; 96365; 96372; 96375; 97116-GP; 97162-GP; 99285-25; G0378; J0131; J1644

== ENCOUNTER 2024-05-21 16:43 | Inpatient (IN) | payer OTHER ==
[2024-05-21 17:10] VITALS: BMI 41.9
[2024-05-21] MEDS ORDERED: BENZONATATE 200 MG CAPSULE PO PRN (19:43)
[2024-05-21] MEDS ORDERED: NALOXONE HCL 0.4 MG/ML VIAL IM PRN (19:43)
[2024-05-21] MEDS ORDERED: MAGNESIUM HYDROX 2400MG/30ML ORAL SUSPENSION 30 ML CUP PO PRN (19:43)
[2024-05-21] MEDS ORDERED: IBUPROFEN 400 MG TABLET (FP) PO PRN (19:43)
[2024-05-21] MEDS ORDERED: LOPERAMIDE HCL 2 MG CAPSULE PO PRN (19:43)
[2024-05-21] MEDS ORDERED: NALOXONE (NARCAN) HCL 4 MG/0.1 ML SPRAY NS PRN (19:43)
[2024-05-21] MEDS ORDERED: POLYETHYLENE GLYCOL (HEALTHYLAX) 3350 17 GM PACKET PO PRN (19:43)
[2024-05-21] MEDS ORDERED: ACETAMINOPHEN 325 MG TABLET (FP) PO PRN (19:43)
[2024-05-21] MEDS ORDERED: BENZOCAINE/MENTHOL (CHLORASEPTIC ) LOZENGE MM PRN (19:43)
[2024-05-21] MEDS ORDERED: MAG HYDROX/AL HYDROX/SIMETH 30 ML UNIT-DOSE CUP PO PRN (19:43)
[2024-05-21] MEDS ORDERED: IBUPROFEN 600 MG TABLET (FP) PO PRN (19:43)
[2024-05-21] MEDS ORDERED: guaiFENesin 600 MG TABLET.ER (FP) PO PRN (19:43)
[2024-05-21] MEDS: MELATONIN 5 MG TABLETS PO SCH (22:07)
[2024-05-21] MEDS: THIAMINE 100 MG TABLET PO SCH (22:07)
[2024-05-22] MEDS: hydrOXYzine PAMOATE 25 MG CAPSULE (FP) PO PRN (00:41)
[2024-05-22] MEDS: PRENATAL VITAMINS W/ FOLIC ACID TABLET (FP) PO SCH (10:25)
[2024-05-22] MEDS: NICOTINE 14 MG/24 HOURS TOPICAL PATCH TD SCH (10:25)
[2024-05-22 11:25] LABS: HEMOGLOBIN 13.1 GM/dL (10.7-15.3); MCH 29.7 pg (25.7-33.7); MEAN CELL VOLUME 92.8 fl (80-96); MEAN PLT VOLUME 7.1 fl (7.5-11.1); PLATELET COUNT 223 10^3/uL (134-434); RBC 4.41 M/mm3 (3.60-5.2); RDW 16.3 % (11.6-15.6)
[2024-05-22 13:11] LABS: CHLORIDE 101 mmol/L (98-107); POTASSIUM 4.3 mmol/L (3.5-5.1); SODIUM 138 mmol/L (136-145)
[2024-05-22 13:55] LABS: CALCIUM 9.6 mg/dL (8.5-10.1); SGPT/ALT 30 U/L (13-61)
[2024-05-22 13:56] LABS: ALBUMIN 3.4 g/dl (3.4-5.0); ANION GAP 7 mmol/L (4-13); CO2 29 mmol/L (21-32); GLUCOSE,RANDOM 92 mg/dL (74-106)
[2024-05-22 13:58] LABS: EPI CELLS >36 /uL (0-25.1); HYALINE CASTS 1 /uL (0-3.1); URINE APPEARANCE CLEAR; URINE BACTERIA 598 /uL (0-1359); URINE BILIRUBIN NEGATIVE (NEGATIVE); URINE COLOR YELLOW; URINE GLUCOSE (UA) NEGATIVE (NEGATIVE); URINE KETONE NEGATIVE (NEGATIVE); URINE LEUK ESTERASE NEGATIVE (NEGATIVE); URINE NITRITE NEGATIVE (NEGATIVE); URINE PROTEIN TRACE (NEGATIVE); URINE RBC 11 /uL (0-23.9); URINE UROBILINOGEN 0.2 mg/dL (0.2-1.0); URINE WBC 28 /uL (0-25.8)
[2024-05-22 13:59] LABS: CREATININE 0.9 mg/dL (0.55-1.3); SGOT/AST 36 U/L (15-37)
[2024-05-22 14:01] LABS: ALK PHOS 42 U/L (45-117); TOT PROT 6.8 g/dl (6.4-8.2)
[2024-05-23] MEDS ORDERED: ALBUTEROL SO4 HFA INHALER IH PRN (12:26)
[2024-05-23] MEDS: BUDESONIDE/FORMETEROL FUMARATE 160/4.5 mcg INHALER IH SCH (13:06)
[2024-05-23] MEDS: predniSONE 20 MG TABLET (UD) PO SCH (13:07)
[2024-05-23] MEDS: risperiDONE 1 MG TABLET PO SCH (21:49)
[2024-05-24] MEDS ORDERED: THIAMINE 100 MG TABLET PO SCH (10:00)
[2024-05-24] MEDS: FOLIC ACID 1 MG TABLET (FP) PO SCH (10:10)
[2024-05-24] MEDS: NICOTINE 7 MG/24 HOURS TOPICAL PATCH TD SCH (10:11)
[2024-05-26] MEDS: CYCLOBENZAPRINE HCL 5 MG TABLET PO PRN (04:38)
[2024-05-26] MEDS: ATORVASTATIN CA 20 MG TABLET (FP) PO SCH (21:40)
[2024-05-27] MEDS: TOPIRAMATE 25 MG TABLET PO SCH (12:28)
[2024-05-28] MEDS: LOSARTAN POTASSIUM 50 MG TABLET PO SCH (12:08)
[2024-05-28] MEDS: NALTREXONE HCL 50 MG TABLET PO ONE (12:08)
[2024-05-28] MEDS: METHYL SALICYLATE/MENTHOL 30 GM TUBE TP SCH (12:10)
[2024-05-28] MEDS: NALTREXONE HCL 50 MG TABLET PO SCH (12:11)
[2024-05-29] MEDS: NALTREXONE HCL 50 MG TABLET PO SCH (10:21)
[2024-05-30] MEDS: NICOTINE POLACRILEX 2 MG GUM BC PRN (10:00)
[2024-05-30] MEDS: FLU VACCINE (FLULAVAL) PF 45 MCG/0.5 ML SYRINGE 2024-2025 IM ONE (18:11)
[2024-06-03 04:57] VITALS: RESP 16
[2024-06-03] MEDS: NALTREXONE MICROSPHERES (VIVITROL) 380 MG DISP.SYRIN IM ONE (12:06)
[2024-06-04 06:58] VITALS: TEMP 97.6
[2024-06-04] MEDS: NALOXONE (NYS OPIOID OVERDOSE PROGRAM) 4 MG/0.1 ML SPRAY NS PRN (10:46)
[2024-06-04 10:57] VITALS: BP 120/57; PULSE 103
== END 2024-06-04 10:47 | disposition home or self-care (01) | DRG 895 ==
LOC: YASAS 16:43 → Y5N 21:02
PROVIDERS: ADMIT Psychiatry & Neurology Pain Medicine; ATTEND Psychiatry & Neurology Pain Medicine
PROC: HZ42ZZZ Group Counseling for Substance Abuse Treatment, Cognitive-Behavioral (ICD-10-PCS; principal; 2024-05-21)
DX: F10.20 Alcohol dependence, uncomplicated (principal); F14.20 Cocaine dependence, uncomplicated; F12.20 Cannabis dependence, uncomplicated; F17.210 Nicotine dependence, cigarettes, uncomplicated; F31.9 Bipolar disorder, unspecified; G47.00 Insomnia, unspecified; E78.5 Hyperlipidemia, unspecified; I10 Essential (primary) hypertension; J44.9 Chronic obstructive pulmonary disease, unspecified; M17.11 Unilateral primary osteoarthritis, right knee; M16.11 Unilateral primary osteoarthritis, right hip; R60.0 Localized edema
CPT/HCPCS: 36415; 80053; 80305; 80307; 81003; 85027; 86593; 86780; 87811; 90656; J2315